=== PATIENT | male | born 1935 | race Asian ===

== ENCOUNTER 2016-07-07 11:30 | Inpatient (IN) | payer MEDICARE ==
[~2016-07-07] VITALS: Ht 172.7 cm; Wt 68.0 kg
[~2016-07-07 11:30] MED LIST: ASPIRIN EC81 MG ORAL; ATORVASTATIN CA10 MG PO; ATORVASTATIN CA20 MG ORAL; AVODART0.5 MG; FINASTERIDE5 MG PO; METFORMIN HCL850 M1 ORAL; METOPROLOL TAR100 M1 PO; NIFEDIAC; NIFEDIPINE ER60 M2 ORAL; PANTOPRAZOLE SO40 MG PO; TAMSULOSIN HCL0.4 MG PO
[2016-07-07 12:20] LABS: BASOPHILS % (AUTO) 0.9 % (0.0-2.0); EOSINOPHILS % (AUTO) 0.7 % (0.0-3.0); LYMPHOCYTES % (AUTO) 18.6 % (20.0-45.0); MEAN CORPUSCULAR HEMOGLOBIN 30.1 PG (27.0-31.0); MEAN CORPUSCULAR HGB CONC 34.2 G/DL (32.0-36.0); MEAN CORPUSCULAR VOLUME 88 FL (80-99); MEAN PLATELET VOLUME 6.6 FL (6.5-10.1); MONOCYTES % (AUTO) 6.3 % (1.0-10.0); NEUTROPHILS % (AUTO) 73.6 % (45.0-75.0); PLATELET COUNT 254 K/UL (150-450); RED BLOOD COUNT 4.69 M/UL (4.70-6.10); RED CELL DISTRIBUTION WIDTH 12.9 % (11.6-14.8); WHITE BLOOD COUNT 9.5 K/UL (4.8-10.8)
[2016-07-07 12:25] LABS: PROTHROMBIN TIME 10.2 SEC (9.30-11.50)
[2016-07-07 12:30] LABS: TROPONIN I < 0.30 ng/mL (<=0.30)
[2016-07-07 12:33] LABS: ALANINE AMINOTRANSFERASE 24 U/L (3-41); ALBUMIN/GLOBULIN RATIO 1.6 (1.0-2.7); ANION GAP 19 (5-15); ASPARTATE AMINO TRANSFERASE 19 U/L (5-40); CALCIUM 8.9 mg/dL (8.6-10.2); CARBON DIOXIDE 25 mEQ/L (20-30); CHLORIDE 99 mEQ/L (98-107); CREATININE 0.9 mg/dL (0.7-1.2); HEMOLYSIS 10; POTASSIUM 3.5 mEQ/L (3.4-4.9); SODIUM 143 mEQ/L (135-145); TOTAL PROTEIN 6.8 g/dL (6.6-8.7)
[2016-07-07 12:36] LABS: APPEARANCE,URINE CLEAR; KETONES,URINE NEGATIVE (NEGATIVE); LEUKOCYTE ESTERASE ,URINE NEGATIVE (NEGATIVE); NITRITE,URINE NEGATIVE (NEGATIVE); PH,URINE 5 (4.5-8.0); PROTEIN,URINE NEGATIVE (NEGATIVE); UROBILINOGEN,URINE 1 MG/DL (0.0-1.0)
[2016-07-07 12:43] LABS: CKMB 1.8 ng/mL (< 6.7)
[2016-07-07 13:42] VITALS: BP 101/47
--- NOTE | 2016-07-07 14:35 | Diagnostic Imaging Report ---
Indication: Chest Pain Comparison: 06/19/2007 A single view chest radiograph was obtained. Findings: Heart is enlarged. Lungs are clear. Bones are slightly osteopenic. Impression: No acute disease
[2016-07-07 14:47] VITALS: BP 133/64
--- NOTE | 2016-07-07 14:54 | Emergency Room Report ---
History of Present Illness General Chief Complaint: Syncope Source: Patient Present Illness HPI Patient was at home sitting After being stood up to transfer to his bed, patient felt diaphoretic lightheaded Family describes a syncopal episode The call center rn at bedside apparently initiated CPR Patient did not have any pulses initially Is the paramedics presented patient had become more oriented At this time presents alert awake GCS 15 Denies any headache or visual changes denies any chest pain He reports that he did feel lightheaded and presyncopal prior to the episode denies any recent medication change Allergies: Coded Allergies: No Known Allergies (Verified , 06/19/07) Patient History Past Medical History: see triage record Pertinent Family History: none Reviewed Nursing Documentation: PMH: Agreed, PSxH: Agreed Nursing Documentation-PMH Hx Cardiac Problems: No Hx Hypertension: Yes Hx Pacemaker: No Hx Asthma: No Hx COPD: No Hx Diabetes: Yes Hx Cancer: No Hx Gastrointestinal Problems: No Hx Dialysis: No History Of Psychiatric Problem: No Hx Neurological Problems: No Hx Cerebrovascular Accident: No Hx Seizures: No Review of Systems All Other Systems: negative except mentioned in HPI Physical Exam Vital Signs Date Time Temp Pulse Resp B/P Pulse Ox O2 Delivery O2 Flow Rate FiO2 07/07/16 11:27 98.1 68 16 93/41 98 Sp02 EP Interpretation: reviewed, normal General Appearance: well appearing, no apparent distress Head: normocephalic, atraumatic Eyes: bilateral eye EOMI, bilateral eye PERRL ENT: hearing grossly normal, normal pharynx, TMs + canals normal, uvula midline Neck: full range of motion, supple, no meningismus, no bony tend Respiratory: lungs clear, normal breath sounds, no rhonchi, no respiratory distress, no retraction, no accessory muscle use Cardiovascular #1: normal peripheral pulses, regular rate, rhythm, no edema, no gallop, no JVD, no murmur Gastrointestinal: normal bowel sounds, non tender, soft, no mass, no organomegaly, non-distended, no guarding, no hernia, no pulsatile mass, no rebound Genitourinary: no CVA tenderness Musculoskeletal: normal inspection Neurologic: oriented x3, responsive, patient consumer marketer III-XII nml as tested, motor strength/ tone normal, sensory intact Psychiatric: mood/affect normal Skin: normal color, no rash, warm/dry, palpation normal Lymphatic: normal inspection, no adenopathy Medical Decision Making Diagnostic Impression: Primary Impression: Syncope ER Course Patient is a fairly complex patient with multiple differential to consideration including but not limited to cardiac cardiopulmonary and vascular emergencies Patient's blood work is appropriate Us for the patient remains neurologically intact GCS 15 CT head was not obtained given the presentation And the patient stable for initial observation status Labs Test 07/07/16 11:41 07/07/16 12:25 White Blood Count 9.5 K/UL (4.8-10.8) Red Blood Count 4.69 M/UL (4.70-6.10) Hemoglobin 14.1 G/DL (14.2-18.0) Hematocrit 41.3 % (42.0-52.0) Mean Corpuscular Volume 88 FL (80-99) Mean Corpuscular Hemoglobin 30.1 PG (27.0-31.0) Mean Corpuscular Hemoglobin Concent 34.2 G/DL (32.0-36.0) Red Cell Distribution Width 12.9 % (11.6-14.8) Platelet Count 254 K/UL (150-450) Mean Platelet Volume 6.6 FL (6.5-10.1) Neutrophils (%) (Auto) 73.6 % (45.0-75.0) Lymphocytes (%) (Auto) 18.6 % (20.0-45.0) Monocytes (%) (Auto) 6.3 % (1.0-10.0) Eosinophils (%) (Auto) 0.7 % (0.0-3.0) Basophils (%) (Auto) 0.9 % (0.0-2.0) Prothrombin Time 10.2 SEC (9.30-11.50) Prothromb Time International Ratio 1.0 (0.9-1.1) Activated Partial Thromboplast Time 23 SEC (23-33) Sodium Level 143 mEQ/L (135-145) Potassium Level 3.5 mEQ/L (3.4-4.9) Chloride Level 99 mEQ/L (98-107) Carbon Dioxide Level 25 mEQ/L (20-30) Anion Gap 19 (5-15) Blood Urea Nitrogen 16 mg/dL (7-23) Creatinine 0.9 mg/dL (0.7-1.2) Estimat Glomerular Filtration Rate mL/min (>60) Glucose Level 222 mg/dL (74-106) Calcium Level 8.9 mg/dL (8.6-10.2) Total Bilirubin 0.4 mg/dL (0.0-1.2) Aspartate Amino Transf (AST/SGOT) 19 U/L (5-40) Alanine Aminotransferase (ALT/SGPT) 24 U/L (3-41) Alkaline Phosphatase 131 U/L (40-129) Total Creatine Kinase 88 U/L (38-174) Creatine Kinase MB 1.8 ng/mL (< 6.7) Creatine Kinase MB Relative Index 2.0 Troponin I < 0.30 ng/mL (<=0.30) Pro-B-Type Natriuretic Peptide 145 pg/mL (0-450) Total Protein 6.8 g/dL (6.6-8.7) Albumin 4.2 g/dL (3.5-5.2) Globulin 2.6 g/dL Albumin/Globulin Ratio 1.6 (1.0-2.7) Urine Color Pale yellow Urine Appearance Clear Urine pH 5 (4.5-8.0) Urine Specific [place] 1.010 (1.005-1.035) Urine Protein Negative (NEGATIVE) Urine Glucose (UA) 1+ (NEGATIVE) Urine Ketones Negative (NEGATIVE) Urine Occult Blood Negative (NEGATIVE) Urine Nitrite Negative (NEGATIVE) Urine Bilirubin Negative (NEGATIVE) Urine Urobilinogen 1 MG/DL (0.0-1.0) Urine Leukocyte Esterase Negative (NEGATIVE) EKG Diagnostic Results Rate: normal Rhythm: NSR Rhythm Strip Diag. Results EP Interpretation: yes Rate: 77 Rhythm: NSR, no PVC's, no ectopy Chest X-Ray Diagnostic Results EP Interpretation: Yes Findings: no consolidation, no effusion, no pneumothorax Number of Views: 1 Last Vital Signs Date Time Temp Pulse Resp B/P Pulse Ox O2 Delivery O2 Flow Rate FiO2 07/07/16 14:47 66 16 133/64 98 07/07/16 11:27 98.1 Status: improved Disposition: PLACE IN OBSERVATION Condition: Serious Referrals: Juan Guillen MD (PCP) SIMRAN MATOS D.O. Jul 07, 2016 14:54
[2016-07-07] MEDS ORDERED: LORazepam Inj 2mg/ml 1ml IV PRN (15:00)
[2016-07-07] MEDS ORDERED: Mylanta II UD 30ml ORAL PRN (15:00)
[2016-07-07] MEDS ORDERED: Nitroglycerin Subl 0.4mg tab (Bottle Of 25) SL PRN (15:00)
[2016-07-07] MEDS ORDERED: Miralax 17gm pkt ORAL PRN (15:00)
[2016-07-07] MEDS ORDERED: Morphine Sulfate 2mg/ml Inj IVP PRN (15:00)
[2016-07-07] MEDS ORDERED: DuoNeb 0.5-3(2.5)mg/3ml neb HHN PRN (15:00)
[2016-07-07] MEDS: NovoLOG Insulin Flexpen SUBQ SCH ×2 (17:00→21:39)
[2016-07-07 17:05] VITALS: BP 157/89
[2016-07-07 20:00] VITALS: BP 146/90
[2016-07-07] MEDS: Heparin 5000 units/ml inj SUBQ SCH (21:38)
[2016-07-08 00:10] VITALS: BP 131/46
[2016-07-08 04:05] VITALS: BP 145/82
[2016-07-08] MEDS: NovoLOG Insulin Flexpen SUBQ SCH ×4 (06:27→22:13)
[2016-07-08 07:48] LABS: BASOPHILS % (AUTO) 0.7 % (0.0-2.0); EOSINOPHILS % (AUTO) 2.1 % (0.0-3.0); LYMPHOCYTES % (AUTO) 26.8 % (20.0-45.0); MEAN CORPUSCULAR HEMOGLOBIN 30.1 PG (27.0-31.0); MEAN CORPUSCULAR HGB CONC 34.3 G/DL (32.0-36.0); MEAN CORPUSCULAR VOLUME 88 FL (80-99); MEAN PLATELET VOLUME 6.8 FL (6.5-10.1); MONOCYTES % (AUTO) 10.6 % (1.0-10.0); NEUTROPHILS % (AUTO) 59.9 % (45.0-75.0); PLATELET COUNT 198 K/UL (150-450); RED BLOOD COUNT 4.34 M/UL (4.70-6.10); RED CELL DISTRIBUTION WIDTH 12.6 % (11.6-14.8)
[2016-07-08 07:55] LABS: INR 1.1 (0.9-1.1)
[2016-07-08 08:00] LABS: ALANINE AMINOTRANSFERASE 42 U/L (3-41); ALBUMIN/GLOBULIN RATIO 1.5 (1.0-2.7); ANION GAP 14 (5-15); ASPARTATE AMINO TRANSFERASE 35 U/L (5-40); CALCIUM 9.1 mg/dL (8.6-10.2); CARBON DIOXIDE 29 mEQ/L (20-30); CHLORIDE 102 mEQ/L (98-107); CHOLESTEROL 114 mg/dL (< 200); CHOLESTEROL/HDL RATIO 3.1 (3.3-4.4); CREATININE 0.8 mg/dL (0.7-1.2); HEMOLYSIS 3; LDL CHOLESTEROL (CALC.) 51 mg/dL (60-99); POTASSIUM 3.3 mEQ/L (3.4-4.9); SODIUM 145 mEQ/L (135-145); TOTAL PROTEIN 6.6 g/dL (6.6-8.7)
[2016-07-08 08:33] VITALS: BP 167/86
[2016-07-08] MEDS: Aspirin EC 81mg tab ORAL SCH (08:36)
[2016-07-08] MEDS: Heparin 5000 units/ml inj SUBQ SCH ×2 (08:38→22:07)
[2016-07-08 12:19] VITALS: BP 167/81
--- NOTE | 2016-07-08 13:15 | History and Physical ---
History of Present Illness General Date patient seen: Jul 08, 2016 Reason for Hospitalization: Syncope Present Illness HPI 81 year old male with hx of HTN, DM, ex smokere of > 50 years biba with Chief complaint of lightheadedness, patient apparently felt diaphoretic and light headed upon standing up. Pt lost his pulse and the radiagraph operator at bedside apparently initiated CPR with rubbing the chest His systolic BP upon arrival of paramedics was 90 Pt gained his consciousness immediately. He was admitted to telemetry for further w/u. Allergies: Coded Allergies: No Known Allergies (Verified , 06/19/07) Medication History Scheduled Aspirin Ec* (Aspirin Ec*), 81 MG ORAL DAILY, (Reported) Atorvastatin Calcium* (Lipitor*), 10 MG PO DAILY, (Reported) Finasteride (Finasteride), 5 MG PO DAILY, (Reported) Metformin Hcl* (Metformin Hcl*), 850 MG ORAL BID, (Reported) Metoprolol Tartrate* (Metoprolol Tartrate*), 100 MG PO BID, (Reported) Nifedipine* (Nifedipine Er*), 60 MG ORAL DAILY, (Reported) Pantoprazole* (Pantoprazole*), 40 MG PO DAILY, (Reported) Tamsulosin Hcl (Tamsulosin Hcl*), 0.4 MG PO DAILY, (Reported) Patient History Healthcare decision maker Resuscitation status Full Code Advanced Directive on File Past Medical/Surgical History Past Medical/Surgical History: (1) Prostate cancer Review of Systems All Other Systems: negative except mentioned in HPI Physical Exam General Appearance: WD/WN Lines, tubes and drains: peripheral, central line HEENT: normocephalic, atraumatic Neck: non-tender, normal alignment Respiratory/Chest: chest wall non-tender, lungs clear Cardiovascular/Chest: normal peripheral pulses, normal rate Abdomen: normal bowel sounds Genitourinary/Rectal: normal genital exam, normal rectal exam Last 24 Hour Vital Signs Date Time Temp Pulse Resp B/P Pulse Ox O2 Delivery O2 Flow Rate FiO2 07/08/16 12:19 97.7 60 18 167/81 95 Room Air 07/08/16 08:41 167/86 07/08/16 08:33 97.2 58 20 167/86 94 Room Air 07/08/16 04:05 98.6 69 20 145/82 94 Room Air 07/08/16 04:00 63 07/08/16 00:10 98.5 65 20 131/46 94 Room Air 07/08/16 00:00 67 07/07/16 20:00 97.9 74 20 146/90 99 Room Air 07/07/16 20:00 79 07/07/16 17:05 98.4 77 18 157/89 98 Room Air 07/07/16 15:51 98.1 66 16 133/64 98 07/07/16 14:47 66 16 133/64 98 07/07/16 13:42 62 16 101/47 98 Intake and Output 07/07/16 07/08/16 19:00 07:00 Intake Total 50 ml Balance 50 ml Intake Oral 0 ml IV Total 50 ml # Voids 1 Laboratory Tests Test 07/08/16 07:25 White Blood Count 7.0 K/UL (4.8-10.8) Red Blood Count 4.34 M/UL (4.70-6.10) L Hemoglobin 13.1 G/DL (14.2-18.0) L Hematocrit 38.1 % (42.0-52.0) L Mean Corpuscular Volume 88 FL (80-99) Mean Corpuscular Hemoglobin 30.1 PG (27.0-31.0) Mean Corpuscular Hemoglobin Concent 34.3 G/DL (32.0-36.0) Red Cell Distribution Width 12.6 % (11.6-14.8) Platelet Count 198 K/UL (150-450) Mean Platelet Volume 6.8 FL (6.5-10.1) Neutrophils (%) (Auto) 59.9 % (45.0-75.0) Lymphocytes (%) (Auto) 26.8 % (20.0-45.0) Monocytes (%) (Auto) 10.6 % (1.0-10.0) H Eosinophils (%) (Auto) 2.1 % (0.0-3.0) Basophils (%) (Auto) 0.7 % (0.0-2.0) Prothrombin Time 11.0 SEC (9.30-11.50) Prothromb Time International Ratio 1.1 (0.9-1.1) Activated Partial Thromboplast Time 27 SEC (23-33) Sodium Level 145 mEQ/L (135-145) Potassium Level 3.3 mEQ/L (3.4-4.9) L Chloride Level 102 mEQ/L (98-107) Carbon Dioxide Level 29 mEQ/L (20-30) Anion Gap 14 (5-15) Blood Urea Nitrogen 10 mg/dL (7-23) Creatinine 0.8 mg/dL (0.7-1.2) Estimat Glomerular Filtration Rate mL/min (>60) Glucose Level 119 mg/dL (74-106) #H Calcium Level 9.1 mg/dL (8.6-10.2) Total Bilirubin 0.6 mg/dL (0.0-1.2) Aspartate Amino Transf (AST/SGOT) 35 U/L (5-40) Alanine Aminotransferase (ALT/SGPT) 42 U/L (3-41) H Alkaline Phosphatase 72 U/L (40-129) Total Protein 6.6 g/dL (6.6-8.7) Albumin 4.0 g/dL (3.5-5.2) Globulin 2.6 g/dL Albumin/Globulin Ratio 1.5 (1.0-2.7) Triglycerides Level 132 mg/dL (< 150) Cholesterol Level 114 mg/dL (< 200) LDL Cholesterol 51 mg/dL (60-99) L HDL Cholesterol 37 mg/dL (> 60) Cholesterol/HDL Ratio 3.1 (3.3-4.4) L Thyroid Stimulating Hormone (TSH) 0.210 uIU/mL (0.300-4.500) Height (Feet): 5 Height (Inches): 8.00 Weight (Pounds): 150 Medications Current Medications Medications (Trade) Dose Ordered Sig/Robert Route PRN Reason Start Time Stop Time Status Last Admin Dose Admin Acetaminophen (Tylenol) 650 mg Q4H PRN ORAL fever 07/07/16 15:00 08/06/16 14:59 Al Hydroxide/Mg Hydroxide (Mylanta II) 30 ml Q6H PRN ORAL dyspepsia 07/07/16 15:00 08/06/16 14:59 Albuterol/ Ipratropium (DuoNeb 0.5-3(2.5)mg/3ml) 3 ml Q4H PRN HHN Shortness of Breath 07/07/16 15:00 07/12/16 14:59 Aspirin (Ecotrin) 81 mg DAILY ORAL 07/08/16 09:00 08/07/16 08:59 07/08/16 08:36 Atorvastatin Calcium (Lipitor) 10 mg QHS ORAL 07/07/16 21:00 08/06/16 20:59 07/07/16 21:34 Clonidine HCl (Catapres) 0.1 mg Q4H PRN ORAL SBP > 160 07/07/16 15:00 08/06/16 14:59 07/08/16 08:41 Dextrose (Dextrose 50%) STAT PRN IV Hypoglycemia 07/07/16 15:00 08/06/16 14:59 Finasteride (Proscar) 5 mg DAILY ORAL 07/08/16 09:00 08/07/16 08:59 07/08/16 08:37 Heparin Sodium (Porcine) (Heparin 5000 units/ml) 5,000 units EVERY 12 HOURS SUBQ 07/07/16 21:00 08/06/16 20:59 07/08/16 08:38 Insulin Aspart (NovoLOG) BEFORE MEALS AND HS SUBQ 07/07/16 17:00 08/06/16 16:59 07/08/16 11:41 Lorazepam (Ativan 2mg/ml 1ml) 0.5 mg Q4H PRN IV For Anxiety 07/07/16 15:00 07/14/16 14:59 Morphine Sulfate (Morphine Sulfate) 1 mg Q4H PRN IVP For Pain 7-10 07/07/16 15:00 07/14/16 14:59 Nitroglycerin (Ntg) 0.4 mg Q5M X 3 DOSES PRN SL Prn Chest Pain 07/07/16 15:00 08/06/16 14:59 Ondansetron HCl (Zofran) 4 mg Q6H PRN IVP Nausea & Vomiting 07/07/16 15:00 08/06/16 14:59 Pantoprazole (Protonix) 40 mg DAILY ORAL 07/08/16 09:00 08/07/16 08:59 07/08/16 08:36 Polyethylene Glycol (Miralax) 17 gm HSPRN PRN ORAL Constipation 07/07/16 15:00 08/06/16 14:59 Temazepam (Restoril) 15 mg HSPRN PRN ORAL Insomnia 07/07/16 15:00 07/14/16 14:59 Assessment/Plan Problem List: (1) Sudden cardiac arrest ICD Codes: I46.9 - Cardiac arrest, cause unspecified SNOMED: 328631618 (2) Hypotensive episode ICD Codes: I95.9 - Hypotension, unspecified SNOMED: 08521831 (3) Syncope ICD Codes: R55 - Syncope and collapse SNOMED: 958356948 (4) History of prostate cancer ICD Codes: Z85.46 - Personal history of malignant neoplasm of prostate SNOMED: 157723403 (5) Diabetes mellitus ICD Codes: E11.9 - Type 2 diabetes mellitus without complications SNOMED: 33918794 Assessment/Plan serial ekg, troponin, echo cardiology evaluation adjust cardiac meds RILEY SIMMS Jul 08, 2016 13:15
[2016-07-08 14:41] LABS: PSA TOTAL < 0.1 ng/mL (< 4.5)
[2016-07-08 16:00] VITALS: BP 173/65
--- NOTE | 2016-07-08 19:42 | Cardiology Progress Note ---
Subjective Subjective syncope vasodepressor hypotension ? volume vs meds vs autonomic dysfunvtion prostatic cancedr s/p xrt pancreatic lesion requiring surgery soon dm htn wive denies possibility of accidental bp med overdose bp has sig improved form sbp of 93 to present level of 175 heplock ivf bp meds in light of need for upcoming pancreatic surgery to have ischemia eval prior to dc thank you [id number] Objective Last 24 Hour Vital Signs Date Time Temp Pulse Resp B/P Pulse Ox O2 Delivery O2 Flow Rate FiO2 07/08/16 16:00 95.5 59 18 173/65 96 Room Air 07/08/16 16:00 59 07/08/16 14:40 167/81 07/08/16 12:19 97.7 60 18 167/81 95 Room Air 07/08/16 12:00 59 07/08/16 08:41 167/86 07/08/16 08:33 97.2 58 20 167/86 94 Room Air 07/08/16 08:00 67 07/08/16 04:05 98.6 69 20 145/82 94 Room Air 07/08/16 04:00 63 07/08/16 00:10 98.5 65 20 131/46 94 Room Air 07/08/16 00:00 67 07/07/16 20:00 97.9 74 20 146/90 99 Room Air 07/07/16 20:00 79 Intake and Output 07/07/16 07/08/16 19:00 07:00 Intake Total 50 ml Balance 50 ml Intake Oral 0 ml IV Total 50 ml # Voids 1 Laboratory Tests Test 07/08/16 07:20 07/08/16 07:25 Carcinoembryonic Antigen 3.9 ng/mL H Prostate Specific Antigen < 0.1 ng/mL (< 4.5) Free Prostate Specific Antigen Pending Percent Free Prostate Specific Ag Pending Prostate Specific Antigen Total Pending White Blood Count 7.0 K/UL (4.8-10.8) Red Blood Count 4.34 M/UL (4.70-6.10) L Hemoglobin 13.1 G/DL (14.2-18.0) L Hematocrit 38.1 % (42.0-52.0) L Mean Corpuscular Volume 88 FL (80-99) Mean Corpuscular Hemoglobin 30.1 PG (27.0-31.0) Mean Corpuscular Hemoglobin Concent 34.3 G/DL (32.0-36.0) Red Cell Distribution Width 12.6 % (11.6-14.8) Platelet Count 198 K/UL (150-450) Mean Platelet Volume 6.8 FL (6.5-10.1) Neutrophils (%) (Auto) 59.9 % (45.0-75.0) Lymphocytes (%) (Auto) 26.8 % (20.0-45.0) Monocytes (%) (Auto) 10.6 % (1.0-10.0) H Eosinophils (%) (Auto) 2.1 % (0.0-3.0) Basophils (%) (Auto) 0.7 % (0.0-2.0) Prothrombin Time 11.0 SEC (9.30-11.50) Prothromb Time International Ratio 1.1 (0.9-1.1) Activated Partial Thromboplast Time 27 SEC (23-33) Sodium Level 145 mEQ/L (135-145) Potassium Level 3.3 mEQ/L (3.4-4.9) L Chloride Level 102 mEQ/L (98-107) Carbon Dioxide Level 29 mEQ/L (20-30) Anion Gap 14 (5-15) Blood Urea Nitrogen 10 mg/dL (7-23) Creatinine 0.8 mg/dL (0.7-1.2) Estimat Glomerular Filtration Rate mL/min (>60) Glucose Level 119 mg/dL (74-106) #H Calcium Level 9.1 mg/dL (8.6-10.2) Total Bilirubin 0.6 mg/dL (0.0-1.2) Aspartate Amino Transf (AST/SGOT) 35 U/L (5-40) Alanine Aminotransferase (ALT/SGPT) 42 U/L (3-41) H Alkaline Phosphatase 72 U/L (40-129) Total Protein 6.6 g/dL (6.6-8.7) Albumin 4.0 g/dL (3.5-5.2) Globulin 2.6 g/dL Albumin/Globulin Ratio 1.5 (1.0-2.7) Triglycerides Level 132 mg/dL (< 150) Cholesterol Level 114 mg/dL (< 200) LDL Cholesterol 51 mg/dL (60-99) L HDL Cholesterol 37 mg/dL (> 60) Cholesterol/HDL Ratio 3.1 (3.3-4.4) L Thyroid Stimulating Hormone (TSH) 0.210 uIU/mL (0.300-4.500) CRISTINA HUITRON Jul 08, 2016 19:42
[2016-07-08 20:00] VITALS: BP 187/90
--- NOTE | 2016-07-09 00:17 | Consultation ---
DATE OF CONSULTATION: 07/08/2016 CARDIOLOGY CONSULTATION REFERRING PHYSICIAN: Zaira Dyer M.D. REASON FOR REFERRAL: Syncope. HISTORY OF PRESENT ILLNESS: This is an 81-year-old gentleman with a history of multiple medical problems as described below. The patient apparently got up as usual to wash up yesterday and told his that he was not feeling good, as he has heavy weight on his shoulders pushing him down. He felt light headed, and he was diaphoretic. He sat down on a chair at the dining table and apparently he passed out. His called his sister and her sister who is a retired nurse came by, could not feel the pulse and for a few seconds he was not breathing, and he did start breathing eventually and he was wet, cold, clammy, diaphoretic and pale in his hands. Paramedics were summoned that they were not able to get him down on the floor to administer CPR they said, and eventually the paramedics arrived and he actually woke up at that time. According to his , paramedics told her that when they stood him up, his blood pressure was in the 80s and when he is laying down his blood pressure is still low, but in the 90s. Lime Filter Operator run sheet is reviewed and indicates a blood pressure of 90/60 at that time and the subsequently 110/63. The patient did not really pass out on the floor. He was sitting in the sitting position when he passed out. The paramedics indicate the patient was orthostatic positive with questionable shock position in the rsopchoppy without incident and transferred to [facility]. There is positive change in patient's condition secondary to increased blood pressure and was transferred to the bed without any incident. The patient denies having had any nausea or vomiting. There is no chest pain, pressure tightness or heaviness. There has been no PND or orthopnea. He does have some intermittent episodes of dizziness when he sits up, but that has been going on for some time. He has been eating okay and his diet has been fine. PAST MEDICAL HISTORY: According to his is positive for history of high blood pressure as well as diabetes and high cholesterol. No history of heart attack. He does have a history of prostate cancer. No stroke. He has no ulcers. He does take medication for reflux. He was found to have a lesion on his pancreas reportedly recently and he had endoscopic ultrasound by Dr. 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 No kidney problems or liver problems or thyroid problems. No anemia. He does have arthritis and no problems with blood vessel anywhere in his neck or legs according to his family members. ALLERGIES: He is not allergic to any medications. SOCIAL HISTORY: He used to smoke, but quit that many years ago. Does not drink alcoholic beverages. I agree although he used that previously, no drug use. He is from [facility]. REVIEW OF SYSTEMS: Gastrointestinal: Positive for constipation only and as mentioned with that lesion in the pancreas. Genitourinary: Negative. He has had history of prostate cancer for which he underwent radiation therapy. Constitutional: Negative. Neurologic: Negative. PHYSICAL EXAMINATION: GENERAL: The patient to be elderly gentleman, overweight, in no apparent respiratory distress. NECK: Supple. No jugular venous distention. No abdominojugular reflux noted. LUNGS: Clear to auscultation and percussion. CARDIAC: S1 is normal. S2 is normal. Regular rate and rhythm. No heaves, thrills, gallops, or rubs are noted. ABDOMEN: Soft and nontender. Positive bowel sounds. EXTREMITIES: There is no edema of his lower extremities at this time, although his indicates he has had some on prior occasions. NEUROLOGIC: He is awake, alert, and responsive. LABORATORY AND DIAGNOSTIC DATA: White count is 7, hemoglobin 13.1, and platelet count of 198,000. His sodium is 145, potassium is 3.3, chloride 102, bicarbonate of 29, BUN of 10, creatinine 0.8, and glucose of 119. The liver function tests are normal. His alkaline phosphate is 131 yesterday. Troponin is less than 0.1 yesterday. His total cholesterol is 114 with a LDL of 51. His TSH is 0.21 and his PSA was less than 0.1 and CEA of 3.9. His INR 1.1 and PTT of 27. His urinalysis is fairly unremarkable. He did have a carotid duplex that showed really 10%-20% stenosis, but nothing significant. He did have x-ray of the chest that was performed and showed no acute disease processes. He did have an MRI of his abdomen, but this was back in April and that showed basically a cystic lesion in the pancreatic structure. The patient's EKG showed normal sinus rhythm, no ST or T-wave of abnormalities being documented. He has had an echocardiogram preliminary report indicates normal left ventricular systolic function. No significant valvular dysfunction. There is a mild degree of diastolic dysfunction. ASSESSMENT: 1. Syncope, vasodepression. 2. Hypotension, questionably related to volume versus medication. 3. 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 4. Diabetes mellitus. 5. Hyperlipidemia history. 6. History of prostate cancer. 7. Gastroesophageal reflux disease. PLAN: Dr. Dyer this patient was seen in cardiac consultation. The patient's vital signs were reviewed and appears that the patient was quite hypotensive at time of presentation to the emergency room on the 07/07/2016 with blood pressure documented 93/41 and most recent blood pressure is 173/65. His denies any possibility that he may have inadvertently taken extra doses of medications, but he is on slew of different blood pressure medications, which could have easily caused a significant hypotension with any overdose and nevertheless, his blood pressure has significantly improved with IV hydration. No reason for him to have been dehydrated, he has not been reportedly on any diuretics based on the list of medications provided by the paramedics. He does have some orthostatic symptoms at times and he is a diabetic and certainly could have a autonomic dysfunction that may cause orthostatic hypotension as well. In either case, the patient appears to have improved. His telemetry data was reviewed and was negative. He is recommended to undergo a pancreatic surgery. Relatively it is a big surgery, I would consider doing a preoperative risk assessment with adenosine myocardial perfusion imaging while he is in the hospital prior to discharge soon. Dr. Dyer, thank you for allowing me to participate in the care of this patient. Joao Ward M.D. DR: MARGARITA JOB#: [id number] CC:
[2016-07-09 00:20] VITALS: BP 179/92
[2016-07-09 04:05] VITALS: BP 149/90
[2016-07-09] MEDS: NovoLOG Insulin Flexpen SUBQ SCH ×2 (05:43→11:30)
[2016-07-09 08:28] VITALS: BP 137/75
[2016-07-09] MEDS: Aspirin EC 81mg tab ORAL SCH (09:01)
[2016-07-09] MEDS: Heparin 5000 units/ml inj SUBQ SCH (09:02)
[2016-07-09 09:29] LABS: TROPONIN I < 0.30 ng/mL (<=0.30)
[2016-07-09 10:20] LABS: PSA FREE <0.01 ng/mL; PSA TOTAL <0.1 ng/mL (0.0-4.0)
[2016-07-09 12:08] VITALS: BP 156/86
[2016-07-09] MEDS ORDERED: NIFEDICAL XL30 MG ORAL (14:06)
--- NOTE | 2016-07-09 14:36 | Pulmonology Progress Note ---
Assessment/Plan Problems: (1) Sudden cardiac arrest Assessment & Plan: doubtful (2) Hypotensive episode (3) Syncope (4) History of prostate cancer (5) Diabetes mellitus Assessment/Plan bp better, stress test today dc home after stress test with modified antihypertensive meds Subjective ROS Limited/Unobtainable: No Interval Events: improving, asymptomatic Allergies: Coded Allergies: No Known Allergies (Verified , 06/19/07) Objective Last 24 Hour Vital Signs Date Time Temp Pulse Resp B/P Pulse Ox O2 Delivery O2 Flow Rate FiO2 07/09/16 12:08 97.2 58 18 156/86 95 Room Air 07/09/16 08:28 97.7 69 18 137/75 97 Room Air 07/09/16 08:00 74 07/09/16 04:05 98.6 59 21 149/90 93 Room Air 07/09/16 03:59 66 07/09/16 00:32 68 179/92 07/09/16 00:20 97.3 68 20 179/92 97 Room Air 07/09/16 00:04 60 07/08/16 22:04 187/90 07/08/16 22:03 61 187/90 07/08/16 20:00 97.3 61 18 187/90 94 Room Air 07/08/16 19:11 65 07/08/16 16:00 95.5 59 18 173/65 96 Room Air 07/08/16 16:00 59 07/08/16 14:40 167/81 Intake and Output 07/08/16 07/09/16 19:00 07:00 Intake Total 480 ml Output Total 275 ml Balance 480 ml -275 ml Intake Oral 480 ml Output Urine Total 275 ml # Voids 3 2 General Appearance: WD/WN HEENT: normocephalic, atraumatic Respiratory/Chest: chest wall non-tender, lungs clear Cardiovascular: normal peripheral pulses, normal rate Abdomen: normal bowel sounds, no organomegaly Extremities: no cyanosis Neurologic/Psychiatric: bonus clerk II-XII grossly normal Laboratory Tests 07/09/16 08:30: Troponin I < 0.30 Current Medications Medications (Trade) Dose Ordered Sig/Robert Route PRN Reason Start Time Stop Time Status Last Admin Dose Admin Acetaminophen (Tylenol) 650 mg Q4H PRN ORAL fever 07/07/16 15:00 08/06/16 14:59 Adenosine (Adenoscan) 57 mg ONCE ONCE IVP 07/09/16 15:00 07/09/16 15:01 Al Hydroxide/Mg Hydroxide (Mylanta II) 30 ml Q6H PRN ORAL dyspepsia 07/07/16 15:00 08/06/16 14:59 Albuterol/ Ipratropium (DuoNeb 0.5-3(2.5)mg/3ml) 3 ml Q4H PRN HHN Shortness of Breath 07/07/16 15:00 07/12/16 14:59 Aspirin (Ecotrin) 81 mg DAILY ORAL 07/08/16 09:00 08/07/16 08:59 07/09/16 09:01 Atorvastatin Calcium (Lipitor) 10 mg QHS ORAL 07/07/16 21:00 08/06/16 20:59 07/08/16 22:04 Clonidine HCl (Catapres) 0.1 mg Q4H PRN ORAL SBP > 160 07/07/16 15:00 08/06/16 14:59 07/08/16 22:04 Dextrose (Dextrose 50%) STAT PRN IV Hypoglycemia 07/07/16 15:00 08/06/16 14:59 Finasteride (Proscar) 5 mg DAILY ORAL 07/08/16 09:00 08/07/16 08:59 07/09/16 09:01 Heparin Sodium (Porcine) (Heparin 5000 units/ml) 5,000 units EVERY 12 HOURS SUBQ 07/07/16 21:00 08/06/16 20:59 07/09/16 09:02 Insulin Aspart (NovoLOG) BEFORE MEALS AND HS SUBQ 07/07/16 17:00 08/06/16 16:59 07/09/16 05:43 Lorazepam (Ativan 2mg/ml 1ml) 0.5 mg Q4H PRN IV For Anxiety 07/07/16 15:00 07/14/16 14:59 Morphine Sulfate (Morphine Sulfate) 1 mg Q4H PRN IVP For Pain 7-10 07/07/16 15:00 07/14/16 14:59 Nifedipine (Procardia XL) 30 mg QHS ORAL 07/08/16 21:00 08/07/16 20:59 07/08/16 22:03 Nitroglycerin (Ntg) 0.4 mg Q5M X 3 DOSES PRN SL Prn Chest Pain 07/07/16 15:00 08/06/16 14:59 Ondansetron HCl (Zofran) 4 mg Q6H PRN IVP Nausea & Vomiting 07/07/16 15:00 08/06/16 14:59 Pantoprazole (Protonix) 40 mg DAILY ORAL 07/08/16 09:00 08/07/16 08:59 07/09/16 09:01 Polyethylene Glycol (Miralax) 17 gm HSPRN PRN ORAL Constipation 07/07/16 15:00 08/06/16 14:59 Temazepam (Restoril) 15 mg HSPRN PRN ORAL Insomnia 07/07/16 15:00 07/14/16 14:59 07/08/16 23:04 RILEY SIMMS Jul 09, 2016 14:36
--- NOTE | 2016-07-09 14:39 | Internal Med Progress Note ---
Subjective Physician Name Juan Guillen Attending Physician Zaira Dyer Current Medications Medications (Trade) Dose Ordered Sig/Robert Route PRN Reason Start Time Stop Time Status Last Admin Dose Admin Acetaminophen (Tylenol) 650 mg Q4H PRN ORAL fever 07/07/16 15:00 08/06/16 14:59 Adenosine (Adenoscan) 57 mg ONCE ONCE IVP 07/09/16 15:00 07/09/16 15:01 Al Hydroxide/Mg Hydroxide (Mylanta II) 30 ml Q6H PRN ORAL dyspepsia 07/07/16 15:00 08/06/16 14:59 Albuterol/ Ipratropium (DuoNeb 0.5-3(2.5)mg/3ml) 3 ml Q4H PRN HHN Shortness of Breath 07/07/16 15:00 07/12/16 14:59 Aspirin (Ecotrin) 81 mg DAILY ORAL 07/08/16 09:00 08/07/16 08:59 07/09/16 09:01 Atorvastatin Calcium (Lipitor) 10 mg QHS ORAL 07/07/16 21:00 08/06/16 20:59 07/08/16 22:04 Clonidine HCl (Catapres) 0.1 mg Q4H PRN ORAL SBP > 160 07/07/16 15:00 08/06/16 14:59 07/08/16 22:04 Dextrose (Dextrose 50%) STAT PRN IV Hypoglycemia 07/07/16 15:00 08/06/16 14:59 Finasteride (Proscar) 5 mg DAILY ORAL 07/08/16 09:00 08/07/16 08:59 07/09/16 09:01 Heparin Sodium (Porcine) (Heparin 5000 units/ml) 5,000 units EVERY 12 HOURS SUBQ 07/07/16 21:00 08/06/16 20:59 07/09/16 09:02 Insulin Aspart (NovoLOG) BEFORE MEALS AND HS SUBQ 07/07/16 17:00 08/06/16 16:59 07/09/16 05:43 Lorazepam (Ativan 2mg/ml 1ml) 0.5 mg Q4H PRN IV For Anxiety 07/07/16 15:00 07/14/16 14:59 Morphine Sulfate (Morphine Sulfate) 1 mg Q4H PRN IVP For Pain 7-10 07/07/16 15:00 07/14/16 14:59 Nifedipine (Procardia XL) 30 mg QHS ORAL 07/08/16 21:00 08/07/16 20:59 07/08/16 22:03 Nitroglycerin (Ntg) 0.4 mg Q5M X 3 DOSES PRN SL Prn Chest Pain 07/07/16 15:00 08/06/16 14:59 Ondansetron HCl (Zofran) 4 mg Q6H PRN IVP Nausea & Vomiting 07/07/16 15:00 08/06/16 14:59 Pantoprazole (Protonix) 40 mg DAILY ORAL 07/08/16 09:00 08/07/16 08:59 07/09/16 09:01 Polyethylene Glycol (Miralax) 17 gm HSPRN PRN ORAL Constipation 07/07/16 15:00 08/06/16 14:59 Temazepam (Restoril) 15 mg HSPRN PRN ORAL Insomnia 07/07/16 15:00 07/14/16 14:59 07/08/16 23:04 Allergies: Coded Allergies: No Known Allergies (Verified , 06/19/07) Subjective awake, alert, responsive, NAD, at bedside Objective Last Vital Signs Date Time Temp Pulse Resp B/P Pulse Ox O2 Delivery O2 Flow Rate FiO2 07/09/16 12:08 97.2 58 18 156/86 95 Room Air Laboratory Tests Test 07/09/16 08:30 Troponin I < 0.30 ng/mL (<=0.30) Intake and Output 07/08/16 07/09/16 19:00 07:00 Intake Total 480 ml Output Total 275 ml Balance 480 ml -275 ml Intake Oral 480 ml Output Urine Total 275 ml # Voids 3 2 Objective GENERAL: The patient is well-developed male, in no apparent distress. HEENT: Eyes, pupils are equal and responsive to light and accommodation. Extraocular movements are intact. NECK: Supple without lymphadenopathy. CHEST: Bilateral air entry, clear to auscultation without wheezing or rales. CARDIOVASCULAR: S1, S2 RR. No murmurs. ABDOMEN: Soft, nontender, and nondistended. Positive bowel sounds. EXTREMITIES: Negative for clubbing, cyanosis, or edema. RECTAL: Refused. GENITAL: Refused. NEUROLOGIC: Cranial nerves II through XII are grossly intact without focal deficits. Motor strength is 5/5 bilaterally. Assessment/Plan Assessment/Plan Syncope DM 2 HTN prostate CA s/p Radiation therapy pancreatic cyst Plan: Dc Home today F/U with my office in 1 week discuss with at bedside. Juan Guillen MD Jul 09, 2016 14:39
[2016-07-09] MEDS ORDERED: Adenosine Inj IVP ONE (15:00)
[2016-07-09 16:00] VITALS: BP 155/76
--- NOTE | 2016-07-09 17:05 | Diagnostic Imaging Report ---
Indications: 81-year-old male inpatient with stable angina, requiring preoperative cardiac clearance Technique: The examination was supervised by Dr. Cummins. Baseline electrocardiogram was recorded. Adenosine was administered the patient intravenously per usual protocol. Continuous electrocardiography, heart rate, blood pressure monitoring performed. Immediate SPECT imaging of the left ventricular myocardium was performed in multiple planes with the patient in supine position, following intravenous administration of 33.8 mCi 99 M technetium-sestaMIBI. Cinegraphic images were generated for wall motion analysis. Left ventricular ejection fraction was calculated. Similar imaging was performed at rest immediately prior with intravenous administration of 10.9 mCi 99 M technetium-sestaMIBI. Findings: Comparison: None. Both stress and rest images demonstrate left ventricular myocardial perfusion to be intact. No areas of abnormally decreased or absent perfusion are demonstrated. Cinegraphic images inadequately reconstructed to allow for wall motion analysis. Ejection fraction is estimated at 65%. The patient developed no acute complaints or electrocardiographic changes during adenosine infusion. Supervising fire captain marine's conclusions are that clinical response to pharmacologic stress simulation is nonischemic while electrocardiographic response is likewise nonischemic. IMPRESSION: No evidence of chemically induced left ventricular myocardial ischemia or prior infarct. Wall motion analysis could not be performed.. This correlates with supervising fire captain marine's conclusions.
--- NOTE | 2016-07-09 21:08 | Discharge Summary ---
Discharge Summary Hospital Course Date of Admission Jul 07, 2016 at 12:49 Date of Discharge Jul 09, 2016 at 17:20 Admitting Diagnosis SYNCOPE HPI Dominguez Prater is a 81 year old male who was admitted on Jul 07, 2016 at 12:49 for Syncope Hospital Course [id number] Discharge Discharge Disposition Patient was discharged to Home (01) Discharge Diagnoses: Beth Avina NP Jul 09, 2016 21:08
--- NOTE | 2016-07-10 17:07 | Diagnostic Imaging Report ---
APPROVED REPORT CPT Code: 65479 Vascular Symptoms CVA/TIA: Doppler Spectral Velocity Analysis RightLeft carotid arteries. ECA - Imaging reveals irregular plaque in the external carotid artery. The Doppler signal indicates the degree of stenosis is minimal (10%) in the external carotid artery. VERTEBRAL - The vertebral artery is patent, without evidence of stenosis or steal. LEFT SIDE: CCA - Imaging reveals no significant plaque in the common carotid artery. ICA arteries. The Doppler signal indicates the degree of stenosis is minimal (20%) in the internal carotid, and (10%) in the external carotid arteries. VERTEBRAL - The vertebral artery is patent, without evidence of stenosis or steal.
--- NOTE | 2016-07-10 19:57 | Discharge Summary 2 SIG ---
DATE OF ADMISSION: 07/07/2016 DATE OF DISCHARGE: 07/09/2016 CONSULTANTS: 1. Joao Ward M.D. 2. Juan Guillen M.D. BRIEF HOSPITAL COURSE: The patient is an 81-year-old male with history of hypertension, diabetes mellitus, prior history of smoking more than 50 years came in with chief complaint of lightheadedness. The patient apparently felt diaphoretic and lightheaded upon standing up. The patient lost his pulse and wrecker operator at bedside apparently initiated CPR. Paramedics were called in. His systolic BP upon arrival of paramedics was 90. The patient gained consciousness immediately. On arrival to ED, the patient was alert and awake with a GCS of 15. The patient was admitted to telemetry. Carotid duplex showed no significant plaque. Dr. Ward was consulted. The patient's EKG showed normal sinus rhythm with no ST to T-wave abnormalities. He had an echocardiogram preliminary report indicates normal left ventricular systolic function. No significant valvular dysfunction. There is mild degree of diastolic dysfunction. Blood pressure has significantly improved with IV hydration. He does have some orthostatic symptoms at times and he is diabetic and certainly could have autonomic dysfunction that may have caused orthostatic hypotension as well. His telemetry data was reviewed and was negative. Cardiac enzymes were monitored. The patient underwent a myocardial perfusion study. Adenosine nuclear stress test was nonischemic. The patient was eventually discharged home to follow up in a week. FINAL DIAGNOSES: 1. Syncope possibly secondary to orthostasis. 2. Diabetes mellitus type 2. 3. Hypertension. 4. Prostate cancer status post radiation therapy. 5. Pancreatic cyst. 6. Hypotensive episode. Zaira Dyer M.D. I have been assigned to dictate discharge summary on this account and I was not involved in the patient's management. Beth Avina N.P. DR: RAMONE JOB#: [id number] CC: MIYA
--- NOTE | 2016-08-12 14:53 | Cardiology Report ---
APPROVED REPORT EXAM: Two-dimensional and M-mode echocardiogram with Doppler and color Doppler. INDICATION Left Ventricular Function M-Mode DIMENSIONS IVSd1.0 (0.7-1.1cm)Left Atrium (MM)3.6 (1.6-4.0cm) LVDd4.0 (3.5-5.6cm)Aortic Root3.0 (2.0-3.7cm) PWd1.0 (0.7-1.1cm)Aortic Cusp Exc.1.5 (1.5-2.0cm) LVDs2.8 (2.5-4.0cm) PWs1.4 cm Normal left ventricular chamber size, systolic function and wall motion. Left ventricular ejection fraction estimated to be 55-60 %. No evidence of ventricular hypertrophy. Anterior Echo-free space, may be due to pericardial fat or effusion. No evidence of pericardial effusion. Left atrium is at upper normal limit. Right cardiac chamber sizes are within normal limits. Mild focal aortic valve sclerosis with adequate cusp excursion. Mildly thickened mitral valve leaflets with normal excursion. Mild mitral annulus and aortic root calcification. Pulmonic valve not well visualized. Normal tricuspid valve structure. IVC dilated at 1.8cm with physiologic collapse. A color flow and spectral Doppler study was performed and revealed: No aortic regurgitation. No aortic stenosis. Mild mitral regurgitation. Mitral diastolic velocities suggest reduced left ventricular relaxation (Grade I). Trace tricuspid regurgitation. Tricuspid systolic velocities suggests peak right ventricular systolic pressure of 22 mmHg. No pulmonic regurgitation.
--- NOTE | 2016-08-19 08:29 | Cardiology Report ---
APPROVED REPORT EKG Measurement Heart [id number] Sinus rhythm with premature atrial complexes Otherwise normal ECG
== END 2016-07-09 17:20 | disposition home or self-care (01) | DRG 312 ==
LOC: ENRESERVTM → ENRESERV → ENRESERVDT → EDBD 11:30 → EMR 12:01 → 2E 12:49 → OBSVTOIN 12:49 → EDBEDREQ 13:45
DX: I95.1 Orthostatic hypotension (principal); K86.2 Cyst of pancreas; E11.9 Type 2 diabetes mellitus without complications; I10 Essential (primary) hypertension; Z85.46 Personal history of malignant neoplasm of prostate; K86.9 Disease of pancreas, unspecified; Z92.3 Personal history of irradiation; Z87.891 Personal history of nicotine dependence; K21.9 Gastro-esophageal reflux disease without esophagitis; E78.5 Hyperlipidemia, unspecified
CPT/HCPCS: 36415; 71010; 78452; 80053; 80061; 81003; 82378; 82550; 82553; 82962; 83880; 84153; 84154; 84443; 84484; 85025; 85610; 85730; 93005; 93017; 93306; 93880; J1815

== ENCOUNTER 2018-07-25 09:50 | Inpatient (IN) | payer MEDICARE, OTHER ==
[~2018-07-25] VITALS: Ht 170.2 cm; Wt 73.1 kg
[~2018-07-25 09:50] MED LIST changes: +NIFEDICAL XL30 MG ORAL
[2018-07-25 09:54] VITALS: BP 141/71
--- NOTE | 2018-07-25 10:00 | NUR ---
ED Nurse Note: Pt from home brought in by RA 61 due to syncope episode happpened at home. Per EMS, pt was witnessed by his to be sitting in a chair after eating breakfast ,pale, eyes were closed and unresponsive. EMS was called and initial SBP 80 then 300ml bolus NS was given en route. Re check BP 163/73. No head trauma or fall incident. Pt is now AAO x4, following commands with no respiratory distress. Skin is warm and intact. Attached to monitor. VSS. fall precautions are implemented. Side rails up x2 and bed in lowest locked position. at the bed side.
--- NOTE | 2018-07-25 10:25 | NUR ---
ED Nurse Note: Pt is unable to provide urine specimen at this time.
--- NOTE | 2018-07-25 10:44 | NUR ---
ED Nurse Note: Pt came back from CT. Attached to night monitor. VSS.
[2018-07-25 10:55] LABS: ANION GAP 9 mmol/L (5-15); BLOOD UREA NITROGEN 18 mg/dL (7-18); CARBON DIOXIDE 25 MMOL/L (21-32); CHLORIDE 107 MMOL/L (98-107); POTASSIUM 3.1 MMOL/L (3.5-5.1); SODIUM 141 MMOL/L (136-145)
[2018-07-25 10:56] LABS: BASOPHILS % (AUTO) 0.6 % (0.0-2.0); EOSINOPHILS % (AUTO) 0.6 % (0.0-3.0); HEMATOCRIT 24.2 % (42.0-52.0); HEMOGLOBIN 8.5 G/DL (14.2-18.0); LYMPHOCYTES % (AUTO) 22.9 % (20.0-45.0); MEAN CORPUSCULAR VOLUME 87 FL (80-99); MONOCYTES % (AUTO) 6.4 % (1.0-10.0); NEUTROPHILS % (AUTO) 69.5 % (45.0-75.0); PLATELET COUNT 121 K/UL (150-450); RED BLOOD COUNT 2.78 M/UL (4.70-6.10); RED CELL DISTRIBUTION WIDTH 12.3 % (11.6-14.8); WHITE BLOOD COUNT 6.3 K/UL (4.8-10.8)
--- NOTE | 2018-07-25 11:00 | Diagnostic Imaging Report ---
Indication: Headache Technique: Contiguous 5 mm thick transaxial imaging of the head obtained in a Siemens Sensation [address] scanner. Soft tissue and bone windows generated. Automatic Exposure Control was utilized. Total Dose length Product (DLP): 1411.[address] Dose Index Volume (CTDIvol): 70.38 mGy Comparison: none Findings: There is marked prominence of the ventricles, basal cisterns, and cerebral sulci consistent with atrophy. Moderate to severe nonspecific, white matter hypoattenuation is noted throughout the brain likely due to chronic small vessel disease. There is no midline shift, edema, acute hemorrhage, mass effect, or abnormal extra-axial fluid collections. Bones and extra osseous soft tissues are unremarkable. Impression: No acute intracranial bleed, mass effect or edema identified. Severe atrophy of the brain. Moderate to severe chronic small vessel disease involving white matter tracts. The CT scanner at [facility] is accredited by the [employer] and the scans are performed using dose optimization techniques as appropriate to a performed exam including Automatic Exposure control.
[2018-07-25 11:09] LABS: ALANINE AMINOTRANSFERASE 56 U/L (12-78); ALBUMIN 3.7 G/DL (3.4-5.0); ALKALINE PHOSPHATASE 114 U/L (46-116); ASPARTATE AMINO TRANSFERASE 35 U/L (15-37); BILIRUBIN,TOTAL 0.6 MG/DL (0.2-1.0); CKMB 0.7 NG/ML (0.0-3.6); CREATINE KINASE 94 U/L (26-308)
--- NOTE | 2018-07-25 11:12 | NUR ---
HAND-OFF: Report given to Cody BOWERS.
--- NOTE | 2018-07-25 11:22 | Diagnostic Imaging Report ---
Indication: Dyspnea Comparison: 07/07/2016 A single view chest radiograph was obtained. Findings: The heart is normal in size. Aorta is mildly ectatic. Lungs are clear. Bones are osteopenic. IMPRESSION: No acute findings
--- NOTE | 2018-07-25 11:24 | Emergency Room Report ---
History of Present Illness General Chief Complaint: Syncope Source: Patient, Family Member, EMS Present Illness HPI This patient has a history of recurrent syncope. He has been admitted multiple times. He has had a full workup to include a cardiology workup. The last time he had a syncopal episode was about 3 months ago. He has been taken off his blood pressure medications because each time the episode occurs he is found to have low blood pressure. This morning he had another syncopal episode. He was eating breakfast and became lightheaded. He states that his was talking to him by her voice was far away and then he was unable to speak to her. There was no fall or head injury. The patient states he feels much better and is back to baseline. He denies chest pain or palpitations prior to the episode. EMS report that the systolic blood pressure on their arrival was about 85. He was given some fluids in route and his blood pressure normalized. He denies recent illness. He has no other complaints. Allergies: Coded Allergies: No Known Allergies (Verified , 06/19/07) Patient History Past Medical History: see triage record, DM, HTN, GERD Past Surgical History: pinky Social History: Denies: smoking, alcohol use, drug use Reviewed Nursing Documentation: PMH: Agreed; PSxH: Agreed Nursing Documentation-PMH Past Medical History: No History, Except For Hx Hypertension: Yes Hx Pacemaker: No Hx Asthma: No Hx COPD: No Hx Diabetes: Yes Hx Gastrointestinal Problems: No Hx Dialysis: No Hx Neurological Problems: No Hx Cerebrovascular Accident: No Hx Seizures: No Review of Systems All Other Systems: negative except mentioned in HPI Physical Exam Vital Signs Date Time Temp Pulse Resp B/P (MAP) Pulse Ox O2 Delivery O2 Flow Rate FiO2 07/25/18 09:44 97.7 64 16 161/72 92 Room Air Sp02 EP Interpretation: reviewed, normal General Appearance: no apparent distress, alert, GCS 15, non-toxic Head: normocephalic, atraumatic Eyes: bilateral eye normal inspection, bilateral eye PERRL ENT: hearing grossly normal, normal pharynx, no angioedema, normal voice Neck: full range of motion, supple/symm/no masses Respiratory: chest non-tender, lungs clear, normal breath sounds, no respiratory distress, no retraction, no accessory muscle use, speaking full sentences Cardiovascular #1: regular rate, rhythm, no edema Gastrointestinal: normal bowel sounds, non tender, soft, non-distended, no guarding, no rebound Rectal: deferred Musculoskeletal: back normal, gait/station normal, normal range of motion, non- tender Neurologic: alert, oriented x3, responsive, motor strength/tone normal, sensory intact, speech normal Psychiatric: judgement/insight normal, memory normal, mood/affect normal, no suicidal/homicidal ideation Skin: normal color, no rash, warm/dry, well hydrated Medical Decision Making Diagnostic Impression: Primary Impression: Syncope Additional Impression: Anemia ER Course This patient is found to be anemic. This is new for this patient. Possibly this could be secondary to a GI bleed. Patient remained stable here in the emergency department. He did not require blood transfusion. The patient also had presented with syncope which is a not a new symptom. The syncope could be multifactorial. There is no evidence of a cardiac etiology. Initially according to EMS on their arrival the patient was hypotensive. The patient has not been hypotensive during his ED course. He is admitted for further evaluation and treatment by gastroenterology and monitoring and further assessment of his anemia. This patient is critically ill. This patient required complex medical decision- making, aggressive intervention, extensive laboratory workup and monitoring. Critical care time: 40 minutes. Laboratory Tests Test 07/25/18 10:15 White Blood Count 6.3 K/UL (4.8-10.8) Red Blood Count 2.78 M/UL (4.70-6.10) L Hemoglobin 8.5 G/DL (14.2-18.0) L Hematocrit 24.2 % (42.0-52.0) L Mean Corpuscular Volume 87 FL (80-99) Mean Corpuscular Hemoglobin 30.6 PG (27.0-31.0) Mean Corpuscular Hemoglobin Concent 35.2 G/DL (32.0-36.0) Red Cell Distribution Width 12.3 % (11.6-14.8) Platelet Count 121 K/UL (150-450) L Mean Platelet Volume 5.8 FL (6.5-10.1) L Neutrophils (%) (Auto) 69.5 % (45.0-75.0) Lymphocytes (%) (Auto) 22.9 % (20.0-45.0) Monocytes (%) (Auto) 6.4 % (1.0-10.0) Eosinophils (%) (Auto) 0.6 % (0.0-3.0) Basophils (%) (Auto) 0.6 % (0.0-2.0) Prothrombin Time 10.5 SEC (9.30-11.50) Prothrombin Time INR 1.0 (0.9-1.1) PTT 24 SEC (23-33) Urine Color Pale yellow Urine Appearance Clear Urine pH 7 (4.5-8.0) Urine Specific Bath 1.010 (1.005-1.035) Urine Protein Negative (NEGATIVE) Urine Glucose (UA) Negative (NEGATIVE) Urine Ketones Negative (NEGATIVE) Urine Blood Negative (NEGATIVE) Urine Nitrite Negative (NEGATIVE) Urine Bilirubin Negative (NEGATIVE) Urine Urobilinogen Normal MG/DL (0.0-1.0) Urine Leukocyte Esterase Negative (NEGATIVE) Sodium Level 141 MMOL/L (136-145) Potassium Level 3.1 MMOL/L (3.5-5.1) L Chloride Level 107 MMOL/L (98-107) Carbon Dioxide Level 25 MMOL/L (21-32) Anion Gap 9 mmol/L (5-15) Blood Urea Nitrogen 18 mg/dL (7-18) Creatinine 1.0 MG/DL (0.55-1.30) Estimate Glomerular Filtration Rate mL/min (>60) Glucose Level 167 MG/DL (74-106) H Calcium Level 9.0 MG/DL (8.5-10.1) Total Bilirubin 0.6 MG/DL (0.2-1.0) Aspartate Amino Transferase (AST) 35 U/L (15-37) Alanine Aminotransferase (ALT) 56 U/L (12-78) Alkaline Phosphatase 114 U/L (46-116) Total Creatine Kinase 94 U/L (26-308) Creatine Kinase MB 0.7 NG/ML (0.0-3.6) Creatine Kinase MB Relative Index 0.7 Troponin I 0.000 ng/mL (0.000-0.056) Total Protein 7.5 G/DL (6.4-8.2) Albumin 3.7 G/DL (3.4-5.0) Globulin 3.8 g/dL Albumin/Globulin Ratio 1.0 (1.0-2.7) EKG Diagnostic Results Rate: normal Rhythm: NSR ST Segments: no acute changes Rhythm Strip Diag. Results EP Interpretation: yes Rate: 70's Rhythm: NSR, no PVC's, no ectopy Chest X-Ray Diagnostic Results Chest X-Ray Diagnostic Results : Chest X-Ray Ordered: Yes # of Views/Limited/Complete: 1 View Indication: Other Interpretation: no consolidation, no effusion, no pneumothorax, no acute cardiopulmonary disease Impression: No acute disease Electronically Signed by: Anitha Qureshi DO CT/MRI/US Diagnostic Results CT/MRI/US Diagnostic Results : Imaging Test Ordered: CT head Impression Atrovent. No acute findings. Specifically no intracranial bleed, mass effect or edema. See official report. Last Vital Signs Date Time Temp Pulse Resp B/P (MAP) Pulse Ox O2 Delivery O2 Flow Rate FiO2 07/25/18 09:54 97.7 77 19 141/71 98 Room Air Disposition: ADMITTED INPATIENT Condition: Serious Referrals: [facility],REFERRING (PCP) Anitha Qureshi DO Jul 25, 2018 11:24
[2018-07-25 11:26] LABS: APPEARANCE,URINE CLEAR; BILIRUBIN, URINE NEGATIVE (NEGATIVE); COLOR,URINE PALE YELLOW; GLUCOSE, URINE (UA) NEGATIVE (NEGATIVE); KETONES,URINE NEGATIVE (NEGATIVE); LEUKOCYTE ESTERASE ,URINE NEGATIVE (NEGATIVE); NITRITE,URINE NEGATIVE (NEGATIVE); PH,URINE 7 (4.5-8.0); PROTEIN,URINE NEGATIVE (NEGATIVE); UROBILINOGEN,URINE NORMAL MG/DL (0.0-1.0)
--- NOTE | 2018-07-25 13:00 | NUR ---
ED Nurse Note: informed Dr. Roy regarding patient's potassium of 3.1.
--- NOTE | 2018-07-25 14:00 | NUR ---
ED Nurse Note: Patient transported to [facility] and report given to ROBINSON Guevara
[2018-07-25 14:12] LABS: BASOPHILS % (AUTO) 0.9 % (0.0-2.0); EOSINOPHILS % (AUTO) 0.1 % (0.0-3.0); HEMATOCRIT 44.8 % (42.0-52.0); HEMOGLOBIN 15.4 G/DL (14.2-18.0); LYMPHOCYTES % (AUTO) 30.5 % (20.0-45.0); MEAN CORPUSCULAR VOLUME 87 FL (80-99); MONOCYTES % (AUTO) 3.2 % (1.0-10.0); NEUTROPHILS % (AUTO) 65.3 % (45.0-75.0); PLATELET COUNT 232 K/UL (150-450); RED BLOOD COUNT 5.14 M/UL (4.70-6.10); RED CELL DISTRIBUTION WIDTH 12.3 % (11.6-14.8); WHITE BLOOD COUNT 9.5 K/UL (4.8-10.8)
[2018-07-25 14:15] VITALS: BP 166/81
--- NOTE | 2018-07-25 14:15 | NUR ---
NURSE NOTES: Received patient from ROBINSON Ross. Patient came in for syncope and anemia. Patient awake, alert, and verbally responsive. On room air. In no respiratory distress. radiation monitor was in placed. IV site asymptomatic. Will call Dr. Luna for admission orders.
--- NOTE | 2018-07-25 15:00 | NUR ---
NURSE NOTES: Spoke to Dr. Luna and received admission orders and carried out. Also, aware of Potassium 3.1, HGB of 15.4, and Blood pressure of 166/81.
--- NOTE | 2018-07-25 15:45 | History and Physical Report ---
DATE OF ADMISSION: 07/25/2018 CHIEF COMPLAINT: Syncope. HISTORY OF PRESENT ILLNESS: The patient was sitting and eating breakfast when he slumped over in his chair. He was unresponsive for several seconds. The paramedics brought him to the emergency department. He was found to have normal vital signs and mentation. There is no sign of bleeding. He had no seizure activity and he has no complaint of chest pain or shortness of breath, nausea or vomiting. He was noted to have significant drop in his hemoglobin although the stool was brown. Occult blood testing is pending. He is admitted for further evaluation. PAST MEDICAL HISTORY: He has had multiple episodes of syncope in the past and has been evaluated with no findings noted. He has a history of aortic atherosclerosis; hypertensive heart disease and kidney disease with diastolic heart failure, class 1; chronic kidney disease, stage 3; type 2 diabetes with peripheral angiopathy; vitamin D deficiency; recent C. 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 He has a bone spur compressing his esophagus. He has chronic anemia, which is worse now. He has a history of prostate cancer, treated with radiation in 2013. He had major depressive disorder, in remission and sedative dependence. Past smoking history, having quit in 2009 and benign prostate hyperplasia with lower urinary tract symptoms. His syncope workup revealed no findings and was thought to be vasovagal. MEDICATIONS: Include Tylenol, vitamin D, finasteride 5 mg daily, multivitamins, Pravachol 40 mg daily, ranitidine, and Flomax. ALLERGIES: None. PAST SURGICAL HISTORY: Cholecystectomy, ERCP, and pancreatic duct examination by endoscopy with stent placement and sphincterotomy. 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 He has hypertension. He had negative nuclear cardiac study in 2013 with no signs of ischemic heart disease. FAMILY HISTORY: Notable for cardiovascular disease. PHYSICAL EXAMINATION: GENERAL: The patient is alert and responds appropriately. VITAL SIGNS: Blood pressure of 140-160/70. Other vital signs are normal, on room air. SKIN: Warm and dry. HEENT: Head is normocephalic. NECK: No jugular venous distention. Carotids are 2+ without bruits. CARDIAC: Rhythm is regular without murmur or gallop. ABDOMEN: Soft and nontender. LUNGS: Clear. EXTREMITIES: No clubbing, cyanosis, or edema. NEUROLOGIC: No focal deficits. IMAGING: Shows cerebral atrophy on CT scanning. Chest x-ray shows no acute findings. Hemoglobin is 8.5, white count is normal, and platelet count is 121,000. Potassium is 3.1. Blood sugar 167. Electrolytes and renal function appear normal. Creatinine is 1.0. Coagulation is normal. Urine is negative. IMPRESSION: 1. Recurrent syncope with hypokalemia noted. 2. Anemia with recent drop in hemoglobin from 12 to 8.5 in the past two months. 3. Hypertension. 4. Diabetes with microvascular disease. 5. Hypertensive heart disease with diastolic dysfunction. PLAN: The patient will be admitted and further evaluation undertaken including repeat echocardiogram, carotid duplex scan, cardiac monitoring, troponin monitoring, and cardiac consultation. We will have to look for occult blood and do appropriate anemia evaluation. Vaughn Luna M.D. DR: WES JOB#: [id number] CC:
[2018-07-25 16:00] VITALS: BP_SYST 154; BP_SYST 159; BP_DIAS 94
--- NOTE | 2018-07-25 19:05 | NUR ---
NURSE NOTES: Received report from Delmy Dennison RN. Patient is awake in bed, A/O x4 with no s/s of acute distress noted. Sinus rhythm on groundwater monitoring technician. Saturating well on room air. Left wrist 18g IV saline lock, intact and patent. Bed locked in lowest position with side rails up x2. Call light left within reach. Family remains at bedside, will continue to monitor.
--- NOTE | 2018-07-25 19:10 | NUR ---
HAND-OFF: Report given to ROBINSON Vu. Patient stable and in no distress.
[2018-07-25 20:00] VITALS: BP 139/69
--- NOTE | 2018-07-25 22:52 | Physician Query ---
--------- THIS DOCUMENT IS A PERMANENT PART OF THE MEDICAL RECORD --------- PLEASE COMPLETE THE DOCUMENT BEFORE SIGNING Dear Dr._M. HENAO Date: _07/25/17_ Mail Processing Equipment Mechanic/CDS Name: _Sydnee HUTCHINSON___ Mail Processing Equipment Mechanic / CDS Phone # Exercise your independent professional judgment when responding to query. Question asked do not imply a particular answer is desired/expected Clinical Documentation States: "Recurrent syncope with hypokalemia noted. Anemia with recent drop in hemoglobin from 12 to 8.5 in the past two months." - documented in H&P Clinical Findings Show: Hgb = 8.5 Hct = 24.2 K = 3.1 Please specify the cause: [] Autonomic Imbalance [x] Autonomic Dysfunction [] Orthostatic Hypotension [] Psychogenic [] Shock [] Dehydration [] Dialysis Disequilibrium Syndrome [] Heat [] Other: [] Unable to determine Condition Present on Admission: [x] Yes [] No [ ]Clinically Undeterminable Please also document in your Progress Notes and/or Discharge Summary and indicate if the condition was present on admission. MELANI HENAO M.D. DATE & TIME [facility]
[2018-07-26] VITALS: BP 145/76
--- NOTE | 2018-07-26 02:15 | Consultation ---
DATE OF CONSULTATION: 07/25/2018 CARDIOLOGY CONSULTATION CONSULTING PHYSICIAN: Neel Bah M.D. REQUESTING PHYSICIAN: Vaughn Luna M.D. REASON FOR CONSULTATION: Recurrent syncope. HISTORY OF PRESENT ILLNESS: This is an 83-year-old male. He was eating breakfast this morning and slumped over in the chair, found unresponsive for a few seconds. When he was found by paramedics and brought to the emergency room, vital signs and mentation were normal. There was no witnessed seizure activity. No complaints of chest pain. No antecedent complaints of dizziness, nausea, vomiting, abdominal pain, or diarrhea either. The patient was seen in the emergency room and the workup was only notable for a drop in his hemoglobin from prior baseline. The patient apparently has had several episodes of syncope in the past. He has had prior workups. No definitive findings noted. PAST MEDICAL HISTORY: Includes degenerative aortic valve disease; generalized atherosclerosis; chronic kidney disease; hypertension; peripheral artery disease; history of C. difficile colitis; colon polyps; vitamin D deficiency; gastroesophageal reflux disease; chronic anemia; prostate cancer, status post XRT; and insomnia. PAST SURGICAL HISTORY: Status post cholecystectomy, status post pancreatic duct sphincterotomy and stent placement with history of neoplasm MEDICATIONS: Reviewed and reconciled. ALLERGIES: None known. SOCIAL HISTORY: Notable for prior smoking about 50 pack years. REVIEW OF SYSTEMS: In 2013, a myocardial perfusion scan revealed low likelihood for flow-limiting coronary artery disease. Prior echocardiogram has revealed mild aortic valve disease and degenerative disease with stenosis. There is no history of cardiac arrhythmias. PHYSICAL EXAMINATION: GENERAL: Awake and alert, in no distress. VITAL SIGNS: Blood pressure 159/94 earlier and now 139/69, heart rate 72, respiratory rate, and afebrile. Monitored rhythm, sinus. Oxygen saturation 95% on room air. HEENT: Conjunctivae are pink. Oropharynx clear. NECK: Supple. Jugular venous pressure normal. No bruits. LUNGS: Clear. CARDIAC: Regular rhythm and rate. Normal S1, S2 with a 1/6 systolic ejection murmur at the base. ABDOMEN: Soft and nontender with no bruits. EXTREMITIES: No edema. LABORATORY AND DIAGNOSTIC DATA: Sodium 141, potassium 3.1, bicarbonate 35, BUN 18, creatinine 1, troponin negative. Glucose 167. White count 6.3, hemoglobin 8.5 and repeated 15.4. IMPRESSION: 1. Vasovagally mediated syncope. 2. Hypertensive heart disease. 3. Hypokalemia. 4. Type 2 diabetes mellitus. 5. Anemia versus laboratory error. 6. Mild aortic stenosis. PLAN: 1. Cardiac monitoring. 2. Maintain adequate hydration. 3. Check orthostatics. 4. Repeat CBC. 5. Replace potassium. 6. Check magnesium. 7. Reassess beta-trenton dosing. 8. Consider lowering and replacing with long-acting drugs. 9. We will follow. Neel Bah M.D. DR: MAGAN JOB#: [id number] CC:
[2018-07-26 02:50] LABS: ALANINE AMINOTRANSFERASE 62 U/L (12-78); ALBUMIN 3.5 G/DL (3.4-5.0); ALKALINE PHOSPHATASE 100 U/L (46-116); ANION GAP 10 mmol/L (5-15); ASPARTATE AMINO TRANSFERASE 39 U/L (15-37); BILIRUBIN,TOTAL 0.6 MG/DL (0.2-1.0); BLOOD UREA NITROGEN 17 mg/dL (7-18); CARBON DIOXIDE 25 MMOL/L (21-32); CHLORIDE 107 MMOL/L (98-107); CHOLESTEROL 132 MG/DL (< 200); CREATININE 0.8 MG/DL (0.55-1.30); HDL CHOLESTEROL 36 MG/DL (40-60); LACTATE DEHYDROGENASE 159 U/L (81-234); POTASSIUM 3.4 MMOL/L (3.5-5.1); SODIUM 142 MMOL/L (136-145); TRIGLYCERIDES 156 MG/DL (30-150)
[2018-07-26 03:10] LABS: % IRON SATURATION 24 % (15-50); IRON 57 ug/dL (50-175); TOTAL IRON BINDING CAPACITY 237 ug/dL (250-450)
[2018-07-26 04:00] VITALS: BP 145/84
--- NOTE | 2018-07-26 07:19 | NUR ---
HAND-OFF: Report given to Cosme Daniels RN.
[2018-07-26 08:00] VITALS: BP 166/83
--- NOTE | 2018-07-26 08:38 | NUR ---
NURSE NOTES: received pt in the bed, awake, alert, oriented, BP 166/83, respiration regular, no co pain, no SOB, skin warm and dry to touch, abdomen soft, no edema, medicated with BP medication, bed in low position, call light within reach.
[2018-07-26] MEDS: Tamsulosin 0.4mg cap ORAL SCH (08:56)
[2018-07-26] MEDS: Aspirin EC 81mg tab ORAL SCH (08:57)
--- NOTE | 2018-07-26 11:04 | General Progress Note ---
Assessment/Plan Assessment/Plan 1. Recurrent syncope, likely autonomic insufficiency 2. Lab error, no anemia 3. Hypertension. 4. Diabetes with microvascular disease. 5. Hypertensive heart disease with diastolic dysfunction. 6. Hypokalemia repeat cbc normal, no anemia K still low; rx ordered BP not controlled cardiology to adjust meds hope for dc tomorrow Subjective Constitutional: Reports: no symptoms Allergies: Coded Allergies: No Known Allergies (Verified , 06/19/07) Objective Last 24 Hour Vital Signs Date Time Temp Pulse Resp B/P (MAP) Pulse Ox O2 Delivery O2 Flow Rate FiO2 07/26/18 08:57 68 166/83 07/26/18 08:57 68 166/83 07/26/18 08:00 98.6 68 21 166/83 (110) 95 07/26/18 08:00 Room Air 07/26/18 08:00 66 07/26/18 04:00 98.4 66 18 145/84 (104) 95 07/26/18 04:00 Room Air 07/26/18 03:21 65 07/26/18 00:00 Room Air 07/26/18 00:00 68 07/26/18 00:00 98.1 61 18 145/76 (99) 97 07/25/18 20:00 Room Air 07/25/18 20:00 98.3 72 20 139/69 (92) 95 07/25/18 19:35 68 07/25/18 17:14 96 159/94 07/25/18 16:00 97.7 96 20 154/94 (114) 96 07/25/18 16:00 Room Air 07/25/18 15:59 75 07/25/18 14:26 Room Air 07/25/18 14:22 81 07/25/18 14:15 98.1 85 20 166/81 (109) 96 07/25/18 14:00 98.5 72 19 161/90 98 Room Air Intake and Output 07/25/18 07/26/18 19:00 07:00 Intake Total 50 ml 240 ml Output Total 600 ml 600 ml Balance -550 ml -360 ml Intake Oral 50 ml 240 ml Output Urine Total 600 ml 600 ml # Voids 2 # Bowel Movements 3 3 Laboratory Tests 07/25/18 13:50: Stool Occult Blood Negative 07/25/18 14:00: White Blood Count 9.5#, Red Blood Count 5.14, Hemoglobin 15.4#, Hematocrit 44.8# , Mean Corpuscular Volume 87, Mean Corpuscular Hemoglobin 30.0, Mean Corpuscular Hemoglobin Concent 34.4, Red Cell Distribution Width 12.3, Platelet Count 232#, Mean Platelet Volume 5.7L, Neutrophils (%) (Auto) 65.3, Lymphocytes (%) (Auto) 30.5, Monocytes (%) (Auto) 3.2, Eosinophils (%) (Auto) 0.1, Basophils (%) (Auto) 0.9, Troponin I 0.000 07/26/18 02:00: Troponin I 0.009, Sodium Level 142, Potassium Level 3.4L, Chloride Level 107, Carbon Dioxide Level 25, Anion Gap 10, Blood Urea Nitrogen 17, Creatinine 0.8, Estimat Glomerular Filtration Rate , Glucose Level 91, Hemoglobin A1c 5.9, Calcium Level 9.0, Iron Level 57, Total Iron Binding Capacity 237L, Percent Iron Saturation 24, Unsaturated Iron Binding 180, Total Bilirubin 0.6, Aspartate Amino Transf (AST/SGOT) 39H, Alanine Aminotransferase (ALT/SGPT) 62, Alkaline Phosphatase 100, Lactate Dehydrogenase 159, Total Protein 6.9, Albumin 3.5, Globulin 3.4, Albumin/Globulin Ratio 1.0, Triglycerides Level 156H, Cholesterol Level 132, LDL Cholesterol 78, HDL Cholesterol 36L, Cholesterol/HDL Ratio 3.7, Prostate Specific Antigen < 0.10L, Vitamin B12 Level 630, Thyroid Stimulating Hormone (TSH) 0.318L 07/26/18 10:15: Troponin I [Pending] Height (Feet): 5 Height (Inches): 7.00 Weight (Pounds): 161 General Appearance: no apparent distress Neck: supple Cardiovascular: normal rate Respiratory/Chest: lungs clear Vaughn Luna MD Jul 26, 2018 11:04
[2018-07-26 12:00] VITALS: BP 158/88
--- NOTE | 2018-07-26 15:12 | NUR ---
NURSE NOTES: pt resting, no any distress noted, no co pain, BP 158/88, DR. Bah aware.
--- NOTE | 2018-07-26 15:32 | NUR ---
*-* INSURANCE *-* ALL CLINICALS HAVE BEEN FAXED TO: [facility] ADMISSION REPORTED TO [place] [phone] AUTH#: [id number] [place]: [place] Neri#: [phone] F#: [phone] PLEASE FAX CLINICALS TO ABOVE # Addendum: 07/28/18 at 1115 by MART MITCHELL CM SPOKE WITH KENRICK KNOX AT [facility] SHE [place] SET UP HOME HEALTH TO FOLLOW PATIENT WITH [facility]
--- NOTE | 2018-07-26 15:44 | NUR ---
P.T Note: P.T evaluation completed and treatment initiated. Please refer to P.T evaluation for current functional status. Pt presented generalized weakness affecting overall functional mobility. Pt currently require SBA X 1 for bed mobilities, CGA x 1 for transfers and gait/ambulation activities using the FWW. Pt will benefit from skilled P.T service to improve strength, balance and endurance to increase safety and independence in functional mobilities. Recommend Home P.T and FWW at [facility]. Thank you for this referral.
[2018-07-26 16:00] VITALS: BP 158/82
--- NOTE | 2018-07-26 17:42 | Cardiology Report ---
APPROVED REPORT EXAM: Two-dimensional and M-mode echocardiogram with Doppler and color Doppler. INDICATION Syncope M-Mode DIMENSIONS IVSd1.2 (0.7-1.1cm)Left Atrium (MM)3.1 (1.6-4.0cm) LVDd5.1 (3.5-5.6cm)Aortic Root3.2 (2.0-3.7cm) PWd1.0 (0.7-1.1cm)Aortic Cusp Exc.1.4 (1.5-2.0cm) IVSs1.8 cm LVDs3.6 (2.5-4.0cm) PWs1.4 cm Technically difficult study due to poor parasternal acoustical windows. Normal left ventricular chamber size, systolic function and wall motion to extent visualized. Left ventricular ejection fraction estimated to be 55-60%. No evidence of left ventricular hypertrophy by 2-D. No evidence of pericardial effusion. All other cardiac chamber sizes are within normal limits. Aortic valve calcification with decreased cusp excursion c/w aortic stenosis. Thickened mitral valve leaflets with normal excursion. Annulus and aortic root calcification. Pulmonic valve not well visualized. IVC at normal size with physiologic collapse . A color flow and spectral Doppler study was performed and revealed: No aortic insufficiency . Peak aortic valve gradient of 11 mm Hg and a mean of 6 mmHg. Aortic valve area 1.2 cm2 calculated by continuity equation. Mitral diastolic velocities suggest reduced left ventricular relaxation c/w mild LV diastolic dysfunction (Grade I ) Mild mitral regurgitation. Trace tricuspid regurgitation. Tricuspid systolic velocities suggests peak right ventricular systolic pressure of 21mmHg.
--- NOTE | 2018-07-26 18:07 | Cardiology Report ---
APPROVED REPORT EKG Measurement Heart [id number] Normal sinus rhythm Normal ECG
--- NOTE | 2018-07-26 19:12 | NUR ---
HAND-OFF: Report given to AMANDA BOWERS.
--- NOTE | 2018-07-26 19:15 | NUR ---
NURSE NOTES: Received patient from KIM BOWERS. Awake, alert. resting in bed comfortably. Family at bed side. SR on monitor. VS stable. afebrile. Denies any pain at this time. call light in reach. Bed in locked and lowest position.safety measures continued. able to go to the bath room with minimum assist.will resume plan of care.
--- NOTE | 2018-07-26 19:39 | NUR ---
CASE MANAGEMENT: REVIEW 83/M BIBA FROM HOME CC: SYNCOPE SI: SYNCOPE . ANEMIA T 98.4 HR 66 RR 18 BP 161/72 SAT 95% ROOM AIR H/H 8.5/24.2 TROPONIN I 0.000 IS: NS IVF BOLUS X1 K-DUR PO X1 LOPRESSOR PO X1 PATIENT ADMITTED TO STEP DOWN UNIT 07/25/2018 DCP: PATIENT IS FROM HOME
[2018-07-26 20:00] VITALS: BP 128/63
--- NOTE | 2018-07-26 23:30 | Progress Note ---
DATE: 07/26/2018 CARDIOLOGY PROGRESS NOTE: SUBJECTIVE: Awake. Alert. No distress. No recurring loss of consciousness. Up and about in the room without dizziness. OBJECTIVE: VITAL SIGNS: Blood pressure 166/83, pulse 68, respirations 21, afebrile. Discussed with the patient's . She notes that he has episodes of low blood pressure and those are associated with his syncopal episode. LUNGS: Clear. Jugular venous pressure normal with no bruits. CARDIAC: Regular rhythm rate. Normal S1, S2 with a fourth heart sound. ABDOMEN: Soft. EXTREMITIES: No edema. LABORATORY DATA: White count 9.5, hemoglobin 15.4. Potassium 3.4. Troponin negative. BUN 17, creatinine 0.8. B12 normal. Total cholesterol 132. TSH 0.318. IMPRESSION: 1. Vasovagally mediated syncope likely autonomic dysfunction contributing as well. 2. Hypertensive heart disease now with elevated blood pressure. 3. Laboratory error and no signs of anemia now. 4. Hypokalemia. PLAN: 1. Continue antiplatelet therapy. 2. Replace potassium. 3. Check magnesium. 4. Avoid tight blood pressure control and excessive bradycardia in this clinical setting. As such, we will decrease beta-trenton dose and adjust dihydropyridine therapy with addition of angiotensin-converting enzyme inhibitor. Neel Bah M.D. DR: CHRISTY JOB#: [id number] CC:
[2018-07-27] VITALS: BP 134/60
--- NOTE | 2018-07-27 03:10 | NUR ---
NURSE NOTES: patient asleep with no acute distress noted. SR on monitor. vs stable. will continue to monitor .
[2018-07-27 04:00] VITALS: BP 144/74
[2018-07-27 05:50] LABS: BASOPHILS % (AUTO) 1.3 % (0.0-2.0); EOSINOPHILS % (AUTO) 1.5 % (0.0-3.0); HEMATOCRIT 41.3 % (42.0-52.0); HEMOGLOBIN 14.5 G/DL (14.2-18.0); LYMPHOCYTES % (AUTO) 39.2 % (20.0-45.0); MEAN CORPUSCULAR VOLUME 86 FL (80-99); MONOCYTES % (AUTO) 8.3 % (1.0-10.0); NEUTROPHILS % (AUTO) 49.8 % (45.0-75.0); PLATELET COUNT 217 K/UL (150-450); RED BLOOD COUNT 4.78 M/UL (4.70-6.10); RED CELL DISTRIBUTION WIDTH 12.4 % (11.6-14.8)
[2018-07-27 06:22] LABS: ALANINE AMINOTRANSFERASE 62 U/L (12-78); ALBUMIN 3.4 G/DL (3.4-5.0); ALBUMIN/GLOBULIN RATIO 0.9 (1.0-2.7); ALKALINE PHOSPHATASE 130 U/L (46-116); ANION GAP 10 mmol/L (5-15); ASPARTATE AMINO TRANSFERASE 28 U/L (15-37); BILIRUBIN,TOTAL 0.5 MG/DL (0.2-1.0); BLOOD UREA NITROGEN 16 mg/dL (7-18); CALCIUM 8.8 MG/DL (8.5-10.1); CARBON DIOXIDE 26 MMOL/L (21-32); CHLORIDE 105 MMOL/L (98-107); POTASSIUM 3.1 MMOL/L (3.5-5.1); SODIUM 141 MMOL/L (136-145)
--- NOTE | 2018-07-27 07:00 | NUR ---
NURSE NOTES: left message to Dr. HENAO regarding potassium 3.1 awaiting for MD call back.
--- NOTE | 2018-07-27 07:10 | NUR ---
HAND-OFF: Report given to JENNIFER ALVAREZ RN using SBAR. Received order from Dr HENAO. will carry out .
[2018-07-27 08:00] VITALS: BP 130/68
--- NOTE | 2018-07-27 08:10 | NUR ---
NURSE NOTES: received pt in the bed, awake, alert, oriented,vital signs stable, no co pain, no SOB, skin warm and dry to touch, intact, K 3.1, dr. Luna aware, tolerate diet well, bed in low position, call light within reach.
[2018-07-27] MEDS: Aspirin EC 81mg tab ORAL SCH (08:50)
[2018-07-27] MEDS: Tamsulosin 0.4mg cap ORAL SCH (08:51)
[2018-07-27 12:00] VITALS: BP 137/74
[2018-07-27 16:00] VITALS: BP 123/74
--- NOTE | 2018-07-27 16:02 | Diagnostic Imaging Report ---
APPROVED REPORT CPT Code: 80496 Vascular Symptoms Comments: SYNCOPE. Doppler Spectral Velocity Analysis RightLeft RIGHT SIDE: CCA - Imaging reveals no significant plaque within the extracranial carotid arteries. The Doppler spectral flow analysis is within normal limits throughout the extracranial carotid arteries.. VERTEBRAL - The vertebral arteries are patent, without evidence of stenosis or steal. LEFT SIDE: CCA/ECA - Imaging reveals no significant plaque in the common carotid and external carotid arteries. ICA/BULB - Imaging reveals irregular plaque in the internal carotid artery and bulb. The Doppler signal indicates the degree of stenosis is minimal (20%) in the internal carotid artery. 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
[2018-07-27] MEDS ORDERED: METOPROLOL TAR100 M1 ORAL (16:35)
[2018-07-27] MEDS ORDERED: BENAZEPRIL HCL40 MG ORAL (16:35)
[2018-07-27] MEDS ORDERED: POTASSIUM CHLO20 ME1 ORAL (16:35)
--- NOTE | 2018-07-27 19:08 | NUR ---
HAND-OFF: Report given to URSZULA BOWERS.
--- NOTE | 2018-07-27 19:08 | NUR ---
NURSE NOTES: Received report from Cosme Daniels RN. Patient is awake in bed, A/O x4 with no s/s of acute distress noted. Sinus rhythm on court recording monitor. Saturating well on room air. Left wrist 18g IV saline lock, intact and patent. Bed locked in lowest position with side rails up x2. Call light left within reach. Family remains at bedside, will continue to monitor.
[2018-07-27 20:00] VITALS: BP 114/74
[2018-07-28] VITALS: BP 140/77
--- NOTE | 2018-07-28 02:45 | Progress Note ---
DATE: 07/27/2018 CARDIOLOGY PROGRESS NOTE SUBJECTIVE: The patient has no loss of consciousness, chest pain, shortness of breath, dizziness. He is non-orthostatic. OBJECTIVE: VITAL SIGNS: Blood pressure 114/74, pulse 91, respiratory rate 20. Oxygen saturation on room air 95%. LUNGS: Clear. CARDIAC: Regular. ABDOMEN: Soft. EXTREMITIES: No edema. IMPRESSION: 1. Recurring syncope, likely vasovagally mediated and associated with orthostasis. 2. Hypertension with labile blood pressure. 3. Probable autonomic dysfunction. No signs of anemia. 4. Persisting hypokalemia and hypomagnesemia. PLAN: 1. Replace nifedipine with amlodipine for less orthostatic potential. 2. Potassium replacement. 3. IV magnesium replacement. 4. Follow up laboratory studies. 5. Discharge planning. Neel Bah M.D. DR: Isis JOB#: [id number] CC:
[2018-07-28 04:00] VITALS: BP 137/71
[2018-07-28 05:53] LABS: BASOPHILS % (AUTO) 1.1 % (0.0-2.0); EOSINOPHILS % (AUTO) 1.7 % (0.0-3.0); HEMATOCRIT 41.4 % (42.0-52.0); HEMOGLOBIN 14.3 G/DL (14.2-18.0); LYMPHOCYTES % (AUTO) 42.9 % (20.0-45.0); MEAN CORPUSCULAR VOLUME 87 FL (80-99); MONOCYTES % (AUTO) 8.9 % (1.0-10.0); NEUTROPHILS % (AUTO) 45.4 % (45.0-75.0); PLATELET COUNT 215 K/UL (150-450); RED BLOOD COUNT 4.78 M/UL (4.70-6.10); RED CELL DISTRIBUTION WIDTH 12.3 % (11.6-14.8); WHITE BLOOD COUNT 7.7 K/UL (4.8-10.8)
[2018-07-28 06:43] LABS: ALANINE AMINOTRANSFERASE 48 U/L (12-78); ALBUMIN 3.4 G/DL (3.4-5.0); ALBUMIN/GLOBULIN RATIO 0.9 (1.0-2.7); ALKALINE PHOSPHATASE 116 U/L (46-116); ANION GAP 10 mmol/L (5-15); ASPARTATE AMINO TRANSFERASE 22 U/L (15-37); BILIRUBIN,TOTAL 0.6 MG/DL (0.2-1.0); BLOOD UREA NITROGEN 17 mg/dL (7-18); CALCIUM 8.8 MG/DL (8.5-10.1); CARBON DIOXIDE 26 MMOL/L (21-32); CHLORIDE 105 MMOL/L (98-107); POTASSIUM 3.3 MMOL/L (3.5-5.1); SODIUM 141 MMOL/L (136-145)
--- NOTE | 2018-07-28 07:05 | NUR ---
HAND-OFF: Report given to Pamela Urias RN.
--- NOTE | 2018-07-28 08:35 | General Progress Note ---
Assessment/Plan Assessment/Plan 1. Recurrent syncope, likely autonomic insufficiency 2. Lab error, no anemia 3. Hypertension. 4. Diabetes with microvascular disease. 5. Hypertensive heart disease with diastolic dysfunction. 6. Hypokalemia K still low; rx ordered discharged yesterday but did not leave due to HH not set up dc today Subjective Constitutional: Reports: no symptoms Allergies: Coded Allergies: No Known Allergies (Verified , 06/19/07) Objective Last 24 Hour Vital Signs Date Time Temp Pulse Resp B/P (MAP) Pulse Ox O2 Delivery O2 Flow Rate FiO2 07/28/18 04:00 Room Air 07/28/18 04:00 98.4 64 20 137/71 (93) 97 07/28/18 03:47 58 07/28/18 00:00 98.8 67 20 140/77 (98) 94 07/28/18 00:00 Room Air 07/27/18 23:43 69 07/27/18 21:02 91 114/74 07/27/18 20:00 Room Air 07/27/18 20:00 98.5 91 20 114/74 (87) 95 07/27/18 19:29 72 07/27/18 16:00 Room Air 07/27/18 16:00 97.9 66 21 123/74 (90) 96 07/27/18 16:00 68 07/27/18 12:00 Room Air 07/27/18 12:00 98.0 60 19 137/74 (95) 96 07/27/18 11:56 63 07/27/18 08:51 62 130/68 07/27/18 08:50 130/68 07/27/18 08:50 62 130/68 Intake and Output 07/27/18 07/28/18 19:00 07:00 Intake Total 800 ml 800 ml Output Total 950 ml 1200 ml Balance -150 ml -400 ml Intake Oral 800 ml 600 ml IV Total 200 ml Output Urine Total 950 ml 1200 ml # Bowel Movements 1 Laboratory Tests 07/28/18 04:25: White Blood Count 7.7, Red Blood Count 4.78, Hemoglobin 14.3, Hematocrit 41.4L, Mean Corpuscular Volume 87, Mean Corpuscular Hemoglobin 30.0, Mean Corpuscular Hemoglobin Concent 34.6, Red Cell Distribution Width 12.3, Platelet Count 215, Mean Platelet Volume 5.4L, Neutrophils (%) (Auto) 45.4, Lymphocytes (%) (Auto) 42.9, Monocytes (%) (Auto) 8.9, Eosinophils (%) (Auto) 1.7, Basophils (%) (Auto ) 1.1, Sodium Level 141, Potassium Level 3.3L, Chloride Level 105, Carbon Dioxide Level 26, Anion Gap 10, Blood Urea Nitrogen 17, Creatinine 1.0, Estimat Glomerular Filtration Rate , Glucose Level 93, Calcium Level 8.8, Magnesium Level 2.2, Total Bilirubin 0.6, Aspartate Amino Transf (AST/SGOT) 22, Alanine Aminotransferase (ALT/SGPT) 48, Alkaline Phosphatase 116, Pro-B-Type Natriuretic Peptide 103, Total Protein 7.1, Albumin 3.4, Globulin 3.7, Albumin/ Globulin Ratio 0.9L Height (Feet): 5 Height (Inches): 7.00 Weight (Pounds): 161 Vaughn Luna MD Jul 28, 2018 08:35
[2018-07-28] MEDS: Tamsulosin 0.4mg cap ORAL SCH (08:45)
[2018-07-28 08:47] VITALS: BP 156/76
[2018-07-28] MEDS: Aspirin EC 81mg tab ORAL SCH (08:47)
--- NOTE | 2018-07-28 09:35 | NUR ---
Seen and examined with DR mosley ordered to dischaged patient and arranged home. patient education given to patient.
[2018-07-28] MEDS ORDERED: Tubing IV Secondary IV ONE (09:37)
--- NOTE | 2018-07-28 10:50 | NUR ---
Social Service Note RAVI left a message for [place] [facility] [phone] (p) [phone] (f) informing her of dc home with home health. RAVI faxed referral to [place]. Patient discharged home with FWW. Addendum: 07/28/18 at 1220 by MARCOS MARIE Spoke with Renata at [facility] [employer] [facility] [phone] orders received. [facility] [phone].
--- NOTE | 2018-07-28 20:45 | Progress Note ---
DATE: 07/28/2018 CARDIOLOGY PROGRESS NOTE: SUBJECTIVE: The patient received IV magnesium yesterday for a low magnesium level. He continues to receive potassium replacement. Potassium today remains low at 3.3. OBJECTIVE: VITAL SIGNS: Blood pressure 156/78, pulse 72, respirations 18, afebrile. LUNGS: Clear. CARDIAC: Regular. ABDOMEN: Soft. EXTREMITIES: No edema. IMPRESSION: 1. Labile blood pressure. 2. Orthostatic syncope. 3. Hypokalemia. 4. Hypomagnesemia. 5. Autonomic dysfunction. PLAN: 1. Stable for discharge. 2. Additional potassium received. Likely better absorption now that magnesium was replaced. 3. Outpatient electrolyte evaluation is recommended. 4. Persistent hypokalemia. May require addition of Aldactone. 5. Antihypertensives were adjusted and loose blood pressure control is recommended long-term in this patient. Neel Bah M.D. DR: CHRISTY JOB#: [id number] CC:
--- NOTE | 2018-07-30 12:17 | Discharge Summary ---
Discharge Summary Discharge Summary _ DATE OF ADMISSION: 07/25/2018 DATE OF DISCHARGE: 07/28/2018 DISCHARGED BY: Dr. Luna REASON FOR ADMISSION: 83 years old male with past medical history of aortic atherosclerosis, hypertensive heart and kidney disease with diastolic heart failure class I, chronic kidney disease stage III, diabetes mellitus type 2 with peripheral angiopathy, vitamin D deficiency, recent C difficile colitis, resolved after fecal transplant, chronic anemia, history of prostate cancer , treated with radiation , major depressive disorder, multiply episodes of syncope in the past, presented after another syncopal episode . Episode happened when he was sitting and eating breakfast. He slumped over in his chair and was unresponsive for several seconds. Upon evaluation vital signs and mental status were stable . There was no signs of bleeding. There was no seizure activity. No complaints of chest pain or shortness of breath. No nausea or vomiting. Patient was noted to have significant drop in hemoglobin with hemoglobin 8.5, but stool remained brown. Stool for occult blood was negative. CT of the head revealed no acute intracranial bleeding, mass effect or edema. Severe atrophy of the brain was noted along with moderate to severe chronic small vessel disease , involving white matter tract. Potassium 3.1 , hemoglobin 8.5 hematocrit 24.2 , no leukocytosis. Patient was admitted for further management CONSULTANTS: nurse advisor HOSPITAL COURSE: Patient admitted to telemetry floor. Patient was started on IV hydration with close monitoring of hemodynamic status. Echocardiogram revealed preserved ejection fraction 55-60%, no evidence of left ventricular hypertrophy, no evidence of pericardial effusion. No evidence of wall motion abnormality. Grade 1 diastolic dysfunction. Right ventricular systolic pressure of 21. Carotid duplex on the left side revealed minimal stenosis in internal carotid artery and occluded vertebral artery. Lipid panel revealed stable LDL and total cholesterol, borderline triglycerides. Antiplatelet therapy with aspirin was continued and statin were continued. GI prophylaxis provided . s Blood pressure was managed with multiply regimen of antihypertensive medications. Serial troponin were negative. EKG revealed no acute ischemic changes. Thus. patient was ruled out for acute PA. Store Manager followed. Store Manager recommended to avoid tight blood pressure control and excessive bradycardia in this clinical setting. Beta-t[place] dose was decreased. MARIA TERESA inhibitor was added to existing regimen, and Nifedipine was replaced with amlodipine for left orthostatic potential. Orthostatic vital signs were checked once and revealed evidence of orthostatic changes with significant drop in systolic blood pressure from 158 laying to 142 standing and diastolic form 82 to 70 respectively. Syncopal episodes were likely due to autonomic dysfunction along with orthostatic changes. Antihypertensive regimen was optimized as per nurse advisor to maintain loose blood pressure control and minimize medication potentially causing orthostasis. Blood sugar was managed with metformin. Hemoglobin A1c at goal - 5.9 Hemoglobin hematocrit were closely monitored with goal to keep hemoglobin above 7. Repeated CBC 4 hours after initial revealed hemoglobin 15.4 and follow up hemoglobin were all in the same range. Initial anemia was likely due to laboratory error. Stool for occult blood was negative. Prior to discharge hemoglobin 14.3 hematocrit 41.4. Potassium and magnesium were replaced. Patient noted to have persistent hypokalemia. Per nurse advisor , patient may require Aldactone as outpatient . Patient was recommended to follow-up with primary care provider for close monitoring of electrolytes. To reiterate, loose blood pressure control was recommended for long-term management in this patient. REPAIRER ENGINE PRODUCTION was less than 0.1. Patient was working with physical therapy. Fall precaution maintained. Patient was stabilized and ready for discharge home with home health services to follow. FINAL DIAGNOSES: Recurrent syncope due to autonomic dysfunction and orthostatic changes Persistent hypokalemia Diabetes mellitus with microvascular disease Hypertension with labile blood pressure Hypertensive heart disease DISCHARGE MEDICATIONS: See Medication Reconciliation list. DISCHARGE INSTRUCTIONS: Patient was discharged home with home health services. Follow up with primary care provider in one week. I have been assigned to dictate discharge summary for this account. I was not involved in the patient's management. Radha Mckeon NP Jul 30, 2018 12:17
== END 2018-07-28 09:38 | disposition home health service (06) | DRG 74 ==
LOC: EDBD 09:50 → EMR 10:17 → 2W 12:36 → EDBEDREQ 13:03 → 2W 07-26 09:15
DX: G90.8 Other disorders of autonomic nervous system (principal); I13.0 Hypertensive heart and chronic kidney disease with heart failure and stage 1 through stage 4 chronic kidney disease, or unspecified chronic kidney disease; I50.30 Unspecified diastolic (congestive) heart failure; R55 Syncope and collapse; E87.6 Hypokalemia; N18.3 Chronic kidney disease, stage 3 (moderate); K21.9 Gastro-esophageal reflux disease without esophagitis; E11.21 Type 2 diabetes mellitus with diabetic nephropathy; E11.51 Type 2 diabetes mellitus with diabetic peripheral angiopathy without gangrene; E83.42 Hypomagnesemia; I35.0 Nonrheumatic aortic (valve) stenosis; Z90.49 Acquired absence of other specified parts of digestive tract; Z85.46 Personal history of malignant neoplasm of prostate; Z79.84 Long term (current) use of oral hypoglycemic drugs; Z87.891 Personal history of nicotine dependence
CPT/HCPCS: 36415; 70450; 71045; 80053; 80061; 81003; 82270; 82550; 82553; 82607; 82962; 83036; 83540; 83550; 83615; 83735; 83880; 84153; 84443; 84484; 85025; 85610; 85730; 86850; 86900; 86901; 93005; 93306; 93880; 96360; 99285; 99291; J8499